=== PATIENT | female | born 1955 ===

== ENCOUNTER 2025-01-24 10:12 | Emergency (ER) | payer MEDICARE, SELFPAY ==
--- NOTE | ~2025-01-24 | CT_ITS ---
EXAMINATION: CT ABDOMEN AND PELVIS WITH CONTRAST CLINICAL INFORMATION: Left lower quadrant abdominal pain, sudden onset. COMPARISON: None available. TECHNIQUE: Multidetector volumetric images were obtained from the superior aspect of the liver through the pubic symphysis following administration 85 mL of Omnipaque 350 intravenous contrast. Sagittal and coronal reformatted images were obtained on the technologist's workstation. Oral contrast: No This CT examination was performed using dose optimization techniques as appropriate, variously including the following: *Automated exposure control *Adjustment of mA and/or kV according to patient size (this includes techniques or standardized protocols for targeted exams where dose is matched to indication/reason for exam; i.e. extremities or head) *Use of iterative reconstruction technique FINDINGS: LUNG BASES: Heart size is normal. Prior median sternotomy. Lung bases are clear. There is a moderate sized paraesophageal hiatus hernia. LIVER, GALLBLADDER, AND BILIARY TREE: The liver is normal in size, shape, and attenuation. No focal hepatic lesion or biliary ductal dilatation is present. The gallbladder is unremarkable with no evidence of radiopaque gallstones, gallbladder wall thickening, or obvious pericholecystic inflammatory changes. PANCREAS: Unremarkable. SPLEEN: Unremarkable. ADRENAL GLANDS: Unremarkable. KIDNEYS AND URETERS: The kidneys are normal in size, shape, and attenuation. No hydronephrosis, hydroureter, or calculi seen. No perinephric stranding. BLADDER: Essentially decompressed. No gross abnormality. GASTROINTESTINAL TRACT: There is extensive diverticulosis of the left hemicolon. There is no evidence of wall thickening or inflammation. No acute diverticulitis is present. The rectum is normal. There are no CT features of appendicitis. Small bowel is normal in caliber and course. Moderate sized paraesophageal hiatus hernia. Stomach and duodenum appear normal. ABDOMINAL WALL: No significant hernia is appreciated. LYMPH NODES: Normal. VASCULAR: No aortic aneurysm. Retroaortic left renal vein. PELVIC VISCERA: The uterus and adnexa are unremarkable. OSSEOUS STRUCTURES: No suspicious lytic or blastic bone lesions. There is a mild to moderate right convex lumbar scoliosis, apex at L2. There are spinal degenerative changes. CT/CT abdomen pelvis w IV con IMPRESSION: 1. No acute findings in the abdomen or pelvis. 2. Diverticulosis of the left colon without evidence of acute diverticulitis. 3. Moderate-sized paraesophageal hiatus hernia. 4. Additional ancillary findings as discussed in the body of the report. Electronically signed by: Theo Posadas MD 01/24/2025 12:28 PM EDT RP
[2025-01-24 10:17] VITALS: BP 127/65; PULSE 82; RESP 16; O2SAT 97; BMI 31.2
[2025-01-24 10:45] LABS: MANUAL DIFF FLAG NO
[2025-01-24 10:50] LABS: Basophils Percent Auto 0.4 % (0-2); Eosinophils Absolute Auto 0.1 X10*3/uL (0.0-0.4); Eosinophils Percent Auto 1.2 % (0-4); Hematocrit 43.5 % (37.0-47.0); Hemoglobin 14.9 g/dl (12.0-16.0); Imm Gran Abs Auto 0.02 X10*3/uL (0.00-0.03); Imm Gran Pct Auto 0.4 % (0.0-0.4); Mean Corpuscular HGB Conc 34.3 g/dl (31.0-35.0); Mean Corpuscular Hemoglobin 32.7 pg (27.0-33.0); Mean Corpuscular Volume 95.4 fL (80.0-98.0); Mean Platelet Volume 9.6 fL (9.4-12.3); Monocytes Absolute Auto 0.4 X10*3/uL (0.1-1.2); Monocytes Percent Auto 7.2 % (2-11); Neutrophils Absolute Auto 3.2 x10*3/uL (2.0-8.3); Neutrophils Percent Auto 55.8 % (45-73); Platelet Count 177 X10*3/uL (160-400); Red Blood Count 4.56 X10*6/uL (4.20-5.50); Red Cell Distribution Width 12.4 % (11.0-16.0); White Blood Count 5.7 X10*3/uL (4.8-10.8)
--- NOTE | 2025-01-24 11:00 | ED_ITS ---
HPI - Abdominal Pain General Chief Complaint: Abdominal Pain Stated Complaint: L Side Lower Pain Time Seen by Provider: 01/24/25 10:48 Source: patient, RN notes reviewed and old records reviewed Mode of arrival: ambulatory History of Present Illness ED Provider: Anahy Agustin PA-C HPI narrative: 69-year-old female with no significant past medical history presenting to the ED complaining of sudden onset left lower quadrant abdominal pain radiating to periumbilical area x this a.m. denies fever, chills, nausea, vomiting, diarrhea, dysuria/hematuria, flank pain, vaginal bleeding or discharge Related Data Allergies Allergy/AdvReac Type Severity Reaction Status Date / Time No Known Allergies Allergy Verified 01/24/25 10:19 Review of Systems Review of Systems Yes all other systems are reviewed and are negative Constitutional: Reports as per [facility] Past Medical History Attestation statement: The following information was validated with the patient. Source: old records reviewed Physical Exam ED Vital Signs: Vital Signs - 24 hr 01/24/25 10:17 01/24/25 12:49 01/24/25 12:50 Temperature 97.7 F 97.7 F Pulse Rate 82 78 78 Respiratory Rate 16 16 16 Blood Pressure 127/65 119/68 119/68 Pulse Oximetry 97 97 97 BMI result Body Mass Index 31.2 Const General: cooperative, healthy appearing and no acute distress Orientation/consciousness: patient oriented x3 Limitations: no limitations HENMT Head: Yes normal to inspection and Yes atraumatic Ears: hearing grossly normal bilaterally General nose exam: Normal external nose present Face and sinus: Yes normal facial exam Eyes General: appearance normal, both eyes and all related structures EOM: EOMs intact bilaterally Neck Neck: Yes normal visual inspection and Yes no meningeal signs Resp Effort & Inspection: normal respiratory effort and no respiratory distress Cardio Rate: regular rate GI Inspection: Yes normal to inspection Palpation (GI): Soft to palpation, Tenderness to palpation present (GI) in the LLQ; with no rebound tenderness, no guarding and not rigid General: Yes no CVA tenderness Back/Spine/Pelvis Back: no CVA tenderness Skin Rashes: no rashes Wounds: no wounds Neuro General: patient oriented x3, tone normal and no meningeal signs Cranial nerves: Yes CN's II-XII intact bilaterally Gait exam (Neuro): Normal gait present Extrem General: Yes normal to inspection Course Course Course Narrative: -1241--no leukocytosis. Labs otherwise reassuring. -UA negative CT abdomen pelvis w IV con IMPRESSION: 1. No acute findings in the abdomen or pelvis. 2. Diverticulosis of the left colon without evidence of acute diverticulitis. 3. Moderate-sized paraesophageal hiatus hernia. 4. Additional ancillary findings as discussed in the body of the report. > on re-evaluation patient reports symptomatic improvement. Denies any abdominal pain at present. On repeat palpation abdomen is soft and nontender. Patient would like to be discharged home. Results discussed with patient including worrisome signs and symptoms and strict return precautions, and when to return to the emergency department. They verbalized understanding and feel safe for discharge at this time. Medical Decision Making Medical Decision Making [facility] Narrative: 69-year-old female with no significant past medical history presenting to the ED complaining of sudden onset left lower quadrant abdominal pain radiating to periumbilical area x this a.m. On exam vital signs stable, NAD, nontoxic appearing, abdomen is soft with LLQ ttp, no rebound or guarding, no CVAT. Concern for diverticulitis vs colitis vs ? Renal stone/UTI vs appendicitis. Lower suspicion for ovarian torsion/TOA at this time. Unlikely cholecystitis/lithiasis or pancreatitis Plan: Labs, UA, CT AP, IVF, pain control, re-evaluate Please refer to course for remaining clinical decision making, interpretation of labs/imaging results, and discussions with consultants and/or family members. Differential Diagnosis Differential Diagnoses: The differential diagnosis associated with the presentation includes As above Admission/Observation Consideration of admission/observation: Escalation of care including admission/observation considered Lab Data [facility] Lab Attestation statement: I reviewed the patient's lab results. 01/24/25 10:42 01/24/25 10:42 Labs: Lab Results 01/24/25 01/24/25 Range/Units 10:42 11:35 WBC 5.7 (4.8-10.8) X10*3/uL RBC 4.56 (4.20-5.50) X10*6/uL Hgb 14.9 (12.0-16.0) g/dl Hct 43.5 (37.0-47.0) % MCV 95.4 (80.0-98.0) fL MCH 32.7 (27.0-33.0) pg MCHC 34.3 (31.0-35.0) g/dl RDW 12.4 (11.0-16.0) % Plt Count 177 (160-400) X10*3/uL MPV 9.6 (9.4-12.3) fL Immature Gran % (Auto) 0.4 (0.0-0.4) % Neut % (Auto) 55.8 (45-73) % Lymph % (Auto) 35.0 (20-40) % [place] % (Auto) 7.2 (2-11) % Eos % (Auto) 1.2 (0-4) % Baso % (Auto) 0.4 (0-2) % Lymph # (Auto) 2.0 (1.2-4.9) X10*3/uL [place] # (Auto) 0.4 (0.1-1.2) X10*3/uL Eos # (Auto) 0.1 (0.0-0.4) X10*3/uL Baso # (Auto) 0.0 (0.0-0.2) X10*3/uL Abs Immat Gran (auto) 0.02 (0.00-0.03) X10*3/uL Absolute Neuts (auto) 3.2 (2.0-8.3) x10*3/uL Absolute Nucleated RBC 0.000 (0.0-0.012) X10*3/uL Nucleated RBC % (auto) 0.0 (0.0-0.2) /100WBC Sodium 140 (135-145) mmol/L Potassium 4.0 (3.3-5.1) mmol/L Chloride 107 (96-108) mmol/L Carbon Dioxide 24 (22-29) mmol/L Anion Gap 13 (12-20) BUN 12 (9-16) mg/dL Creatinine 0.83 (0.5-1.4) mg/dL Estim Creat Clear Calc 65.8 Estimated GFR > 60 Random Glucose 151 H (60-115) mg/dL Calcium 8.9 (8.4-10.2) mg/dL Magnesium 2.0 (1.6-2.6) mg/dL Total Bilirubin 0.4 (0.0-1.0) mg/dL Direct Bilirubin 0.1 (0.0-0.5) mg/dL AST 31 (5-31) U/L ALT 24 (0-31) U/L Alkaline Phosphatase 89 (39-117) U/L Total Protein 7.0 (6.5-8.0) g/dL Albumin 3.9 (3.5-5.0) g/dL Lipase 13 (8-78) U/L Urine Color Yellow Urine Appearance Cloudy Urine pH 5.5 (5.0-9.0) Ur Specific [place] 1.025 (1.005-1.025) Urine Protein Negative (Neg-Trace) mg/dL Urine Glucose (UA) Negative (Negative) mg/dL Urine Ketones Trace (Negative) mg/dL Urine Blood Negative (Negative) Urine Nitrite Negative (Negative) Ur Leukocyte Esterase Negative (Negative) Independent Interpretation I performed an independent interpretation of an: CT Scan Radiology Impression Discussion of test interpretation with radiology: I have reviewed the radiologist's reading. External Record Review External record reviewed: Inpatient record, Office record, Outpatient record, Prior outpatient labs, Prior outpatient radiology, Primary care record and Outside ED record Tests considered The following testing was considered but not selected: As above Prescription Management I considered prescription management with: Pain Medication, Antibiotic and Other Chronic Conditions Patient?s care impacted by: Other Social Determinants Patient?s care significantly limited by Social Determinants of Health including: Other Social Determinant of Health Medications Administered Discontinued Medications Generic Name Dose Route Start Last Admin Trade Name Freq PRN Reason Stop Dose Admin Sodium Chloride 1,000 mls @ 999 mls/hr 01/24/25 11:15 01/24/25 12:44 Ns IV 01/24/25 12:15 Infused .Q1H1M ASHLEY Infusion Ketorolac Tromethamine 15 mg 01/24/25 11:11 01/24/25 11:38 Ketorolac Tromethamine 15 Mg/Ml Vial IVPUSH 01/24/25 11:12 15 mg ONCE ONE Administration Discharge Plan Discharge Clinical Impression: Abdominal pain Patient Disposition: Home, Self-Care Instructions: Abdominal Pain (ED) Additional Instructions: Your blood work, urine, and CAT scan are reassuring Please have close follow up with your primary care doctor Drink plenty of fluids Take Tylenol and ibuprofen as needed for pain If her symptoms persist or worsen, pain becomes unbearable, you are unable to eat or drink have persistent nausea/vomiting return to the ED Referrals: Physician,Unknown J [Primary Care Provider] - 5 days Interventions: ED Discharge Assessment Last Done: 01/24/25 12:50 Discharge Date/Time: 01/24/25 12:57 Print Language: Greenlandic
[2025-01-24 11:06] LABS: Alanine Aminotransferase 24 U/L (0-31); Albumin Level 3.9 g/dL (3.5-5.0); Alkaline Phosphatase 89 U/L (39-117); Anion Gap 13 (12-20); Aspartate Amino Transferase 31 U/L (5-31); Bilirubin Direct 0.1 mg/dL (0.0-0.5); Bilirubin Total 0.4 mg/dL (0.0-1.0); Blood Urea Nitrogen 12 mg/dL (9-16); Calcium 8.9 mg/dL (8.4-10.2); Carbon Dioxide 24 mmol/L (22-29); Chloride 107 mmol/L (96-108); Creatinine Clr Calc Pharmacy 65.8; Estimated Glomerular Filt Rate > 60; Glucose Random 151 mg/dL (60-115); Lipase 13 U/L (8-78); Sodium 140 mmol/L (135-145)
[2025-01-24] MEDS: Ketorolac Tromethamine 15 MG/ML VIAL IVPUSH (11:38)
[2025-01-24] MEDS: 0.9 % Sodium Chloride 1,000 ML 999 ML IV (11:38)
--- OUTSIDE RECORDS SUMMARY | 2025-01-24 11:49 | XMS_ITS | Clinical Summary ---
Author Organization [facility] Address [address] [place] [address] Care Team Providers Care Pastor Name Role Phone Ana Hilton MD Primary Care Provider [phone] Allergies No known active allergies Medications Medication Sig Dispensed Refills Start Date End Date Status dulaglutide (Trulicity) 0.75 MG/0.5ML subcutaneous pen-injector Inject 0.5 mL (0.75 mg total) under the skin once a week. 2 mL 1 11/30/2022 Active acetaminophen (TYLENOL) 325 MG tablet Take 2 tablets (650 mg total) by mouth every 6 (six) hours as needed. 120 tablet 0 12/02/2022 Active aspirin 81 MG chewable tablet Chew 1 tablet (81 mg total) by mouth daily. 30 tablet 0 12/02/2022 Active docusate sodium 100 MG CAPS Take 100 mg by mouth 2 (two) times a day. 10 capsule 0 12/02/2022 Active levothyroxine (SYNTHROID) tablet 75 mcg Take 1 tablet (75 mcg total) by mouth every morning on an empty stomach. 30 tablet 0 12/03/2022 Active oxyCODONE (ROXICODONE) 5 MG immediate release tablet Take 1 tablet (5 mg total) by mouth every 4 (four) hours as needed. 40 tablet 0 12/02/2022 Active pantoprazole (PROTONIX) 40 MG tablet Take 1 tablet (40 mg total) by mouth every morning on an empty stomach. 30 tablet 0 12/03/2022 Active apixaban (ELIQUIS) 5 MG TABS tablet Take by mouth every 12 (twelve) hours. 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 More than three times a week 04/04/2024 How often do you get togethe r with friends or relatives? More than three times a week 04/04/2024 Attends Syn[employer] Services Not on file 04/04 Active Member of Clubs or Organizations Not on f ile 04/04/2024 Attends Club or Organization Meetings Not on mika e 04/04/2024 Are you , , di vorced, , never , or living with a partner? Living with partner 04/04/2024 Overall Financial Resource Strain (CARDIA) Answe r Date Recorded How hard is it for you to pa y for the very basics like food, housing, medical care, and heating? Somewhat hard 04/04/2024 Hunger Vital Sign Answer Date Recorded Within the past 12 months, y ou worried that your food would run out before you got the money to buy more. Never true 04/04/20 24 Within the past 12 months, t he food you bought just didn't last and you didn't have money to get more. Never true 04/04/2024 PRAPARE - Transportation Answer Date Re corded In the past 12 months, has l ack of transportation kept you from medical appointments or from getting medications? No 03/14 In the past 12 months, has l ack of transportation kept you from meetings, work, or from getting things needed for daily living? No 04/04/2024 Housing Stability Vital Sign Answer Shane e Recorded In the last 12 months, was t here a time when you were not able to pay the mortgage or rent on time? No 04/04/2024 Number of Places Lived in the Last Year Not on f ile 04/04/2024 In the last 12 months, was t here a time when you did not have a steady place to sleep or slept in a skilled nursing (including now)? No 04/04/2024 Sex and Gender Information Value Date Recorded Sex Assigned at Female 11/26/2022 11:54 AM EDT Gender Identity Not on file Sexual Orientation Not on file Job Start Date Occupation Industry Not on file Not on file Not on file Last Filed Vital Signs Vital Sign Reading Time Taken Comments Blood Pressure 107/69 03/22/2023 1:36 PM EDT Pulse 82 03/22/2023 1:36 PM EDT Temperature 36.1 ??C (96.9 ??F) 03/22/2023 1:36 PM ED T Respiratory Rate 19 12/02/2022 11:22 AM EDT Oxygen Saturation 98% 03/22/2023 1:36 PM EDT Inhaled Oxygen Concentration - - Weight 83.5 kg (184 lb) 03/22/2023 1:36 PM EDT Height 154.9 cm (5' 1 ) 11/27/2022 2:57 PM EDT Body Mass Index 34.77 11/27/2022 2:57 PM EDT Plan of Treatment Health Maintenance Due Date Last Done Comments Hepatitis C Screening 1955 COVID-19 Vaccine (#1) 1955 Depression Screening 1969 Preventative Health Evaluation 1975 Colon Cancer Screening (Colonoscopy) 2002 DTap / Tdap / Td (1 - Tdap) 07/17/2006 07/16/2006 Breast Cancer Screening (Mammogram) 2007 Shingrix-Zoster Vaccine (1 of 2) 2007 Fall Risk Assessment 2022 Osteoporosis Screening (DEXA Scan) 2022 Pneumococcal Vaccine (3 of 3 - PPSV23 or PCV20) 2022 07/31/2016, 07/31/2016, 05/10/2012 BMI Counseling 11/26/2023 11/25/2022 Influenza Vaccine (#1) 2024 7, 07/31/2016, 05/10/2012, Additional history exists RSV Adult > 60+ Yrs or (1 - 1-dose 75+ series) 2032 Hepatitis B Vaccines Aged Out No long er eligible based on patient's age to complete this topic RSV Ped < 20 months Aged Out No longe r eligible based on patient's age to complete this topic Medical Devices Implanted Type Area Php Software Engineer Device Identifier Shelf Expiration Date Model / Serial / Lot Hemostat Absorb 2x14in Ster Surg Jnj-Ethi 538 - [id number] Implanted:Qt y: 1 on 11/27/2022 by Leoncio Toribio MD at [facility] [place] and Med Hemostatic Agent N/A: Chest [employer] 01/10/20271950 / / [id number] Hemasorb 4gm 2x2gm Abyx-Manu [id number] - [id number] Implanted:Qt y: 2 on 11/27/2022 by Leoncio Toribio MD at [facility] [place] and Med N/A: Chest [employer] 10/12/2025 OS-401 / / Plate X Stry-Cran [id number] - [id number] Implanted:Qt y: 2 on 11/27/2022 by Leoncio Toribio MD at [facility] [place] and Med N/A: Chest [employer] [id number] / / Plate Manubrium Stry-Cran [id number] - [id number] Implanted:Qt y: 1 on 11/27/2022 by Leoncio Toribio MD at [facility] [place] and Med N/A: Chest [employer] [id number] / / Screw Sd Locking 2.3x12mm Stry-Cran [id number] - [id number] Implanted:Qt y: 5 on 11/27/2022 by Leoncio Toribio MD at [facility] [place] and Med N/A: Chest [employer] [id number] / / Screw Sd Locking 2.3x14mm Stry-Cran [id number] - [id number] Implanted:Qt y: 9 on 11/27/2022 by Leoncio Toribio MD at [facility] [place] and Med N/A: Chest [employer] [id number] / / Screw Sd Locking 2.3x16mm Stry-Cran [id number] 97 - [id number] Implanted:Qt y: 8 on 11/27/2022 by Leoncio Toribio MD at [facility] [place] and Med N/A: Chest [employer] [id number] / / Advance Directives For more information, please contact: [phone] Latest Code Status on File Code Status Date Activated Date Inactivated Comments Full Code 11/26/2022 3:10 PM 12/03/2022 2:17 AM This code status was ascertained in the following way: discussion with patient . Code Status History Code Status Date Activated Date Inactivated Comments Full Code 11/26/2022 2:02 PM 11/26/2022 3:10 PM This code status was ascertained in the following way: discussion with patient. Care Teams Pastor Relationship Specialty Start Date End Date Ana Hilton MD [address] [place] [id number] PCP - General Internal Medicine 11/25/22
--- OUTSIDE RECORDS SUMMARY | 2025-01-24 11:49 | XMS_ITS ---
Author Organization [facility] Address [address] [place] [address] Care Team Providers Care Drilling Fluids Specialist Name Role Phone KEVEN BRIGGS Primary Care Provider [phone] Sherly Vidales Unavailable [phone] Encounters Encounter Location Date Provider Diagnosis [address] [facility] [address] [place] [address] 01/04/2025 Sherly Vidales Plan Of Treatment Next Appt Details Provider Name:ARABELLA FITZPATRICK, 02/13/2025 11:15:00 AM, [address], [address], [place], [address], Progress Notes * MARSMichelle DENNEYDOB:1955 (69 yo F)Acc No.[id number]:01/04/2025 CPE Patient:?Michelle MARS Provider:?Sherly Vidales PA-C :1955???Age:69 Y???Sex:Female D ate:01/04/2025 Address:[address] [facility], [address], [place], [id number] Pcp:KEVEN BRIGGS Subjective: * Chief Complaints: * ??? * Medical History:? Objective: * Vitals:? Assessment: Plan: * Treatment: * Billing Information: * Visit Code:? * Procedure Codes:? Care Plan Details* * Electronic signature of Sherly Vidales PA-C on 01/24/2025 at 11:48 AM EDT Sign off status: Pending * Provider:?Sherly Vidales PA-C Date:?2024 Generated for Chapo suarez/Uyen/Ivanitting on:?01/24/2025 11:48 AM EDT
--- OUTSIDE RECORDS SUMMARY | 2025-01-24 11:49 | XMS_ITS | Patient Health Record ---
Author Organization [facility] Address [address] [place] [address] Care Team Providers Care Phone Operator Name Role Phone KEVEN HILTON Primary Care Provider AMARI ARABELLA Unavailable [phone] PhillipSimeon birch Unavailable [phone] JAKIVANCE Unavailable [phone] Allergies No Known Allergies Results Component Value Reference Range Notes NM GASTRIC EMPTYING STUDY Reviewed date:08/14/2024 09:57:23 AM Interpretation: Performing Lab: Notes/Report: Note See Note [facility], a member of [facility] Patient Name: GEORGE MARS Date of : 1955 Reason for Exam: k31.89 Exam Date: 08/04/2024 [id number] EST Report Status: Final Ordering Provider: ZOHREH SILVA PCP: KEVEN HILTON HISTORY: Nausea and abdominal pain. FINDINGS: Routine radionuclide gastric emptying study was performed following administration of 1.0 mCi of Tc99m sulfur colloid prepared in egg for solid food evaluation. Anterior and posterior imaging obtained. 1 hour retention 60% . Normal <90% 2 hour retention 35% . Normal <60% 3 hour retention 25% . Normal <30% 4 hour retention 15% . Normal <10% IMPRESSION: Normal gastric emptying. -------- FINAL REPOR T -------- Dictated By: German Cohen Dictated Date: 08/08/2024 10:22 ET Assigned Physician: German Cohen Reviewed and Electronically Signed By: German Cohen Signed Date: 10:22 ET Workstation ID: [id number] Transcribed By: Self Edit Transcribed Date: 08/08/2024 10:22 ET TSH Reviewed date:07/05/2024 04:25:56 PM Interpretation: Performing Lab: Notes/Report: Original Ordering Provider: SIMEON RECINOS PA-C [facility], a member of [address] [address] [employer] - Josselin Tom MD TSH 9.50 0.40-4.00 uIU/ml [employer] Reviewed date:07/18/2024 02:08:28 PM Interpretation: Performing Lab: Notes/Report: Original Ordering Provider: KEVEN HILTON MD [facility] HIGH SENSITIVITY TROPONIN I Reviewed date:04/05/2024 09:02:55 AM Interpretation: Performing Lab: Notes/Report: Note Original Ordering Provider: JOSE Moore, [place] [address] [employer] - Josselin Tom MD HIGH SENSITIVITY TROPONIN I 4 <54 pg/mL High levels of biotin in samples may falsely decrease hsTroponin values. Use caution when interpreting hsTroponin results in patients taking biotin who exhibit renal impairment (eGFR <60) or in patients taking more than 20 mg/day of biotin. Note Original Ordering Provider: JOSE Moore, [place] [address] [employer] - Josselin Tom MD CT Abdomen Pelvis W Cont Reviewed date:02/25/2024 11:24:36 AM Interpretation: Performing Lab: Notes/Report: Original Ordering Provider: KEVEN HILTON MD [facility] TOTAL IRON BINDING CAPACITY Reviewed date:04/12/2024 11:31:42 AM Interpretation: Performing Lab: Notes/Report: TOTAL IRON BINDING CAPACITY 280 250-450 ug/dL IRON (FE) 87 40-150 ug/dL % FE SATURATION 31 15-50 % VIT D 1, 25-DIHYDROXY Reviewed date:04/18/2024 04:41:04 PM Interpretation: Performing Lab: Notes/Report: Note Original Ordering Provider: SIMEON Moore, a member of [address] [address] [employer] - Josselin Tom MD VIT D,1,25-DIHYDROXY 69 20 - 79 pg/mL Vitamin D 1, 25 dihydroxy levels should be primarily used to assess Vitamin D status in patients with renal disease and hypercalcemia. Vitamin D 1,25-dihydroxy levels are generally less than 5 pg/mL in end stage renal disease patients. The preferred initial test for assessing Vitamin D status in the general population is Vitamin D 25-hydroxy (VITD). Test performed at [facility], [facility] [place] [id number] Catherine Gustafson MD, PhD - [employer] Note Original Ordering Provider: SIMEON RECINOS PA-C [employer], a member of [address] [address] [employer] - Josselin Tom MD LIPASE Reviewed date:04/05/2024 09:02:55 AM Interpretation: Performing Lab: Notes/Report: [employer], a member of [address] [address] [employer] - Josselin Tom MD LIPASE 17 13-75 U/L TSH Reviewed date:05/03/2024 04:16:20 PM Interpretation: Performing Lab: Notes/Report: [employer] - Josselin Tom MD [address] [place] [id number] [employer], a member of [facility] Original Ordering Provider: SIMEON RECINOS PA-C TSH 4.08 0.40-4.00 uIU/ml TSH Reviewed date:04/17/2024 09:48:18 AM Interpretation: Performing Lab: Notes/Report: [employer] - Josselin Tom MD [address] [place] [id number] [employer], a member of [facility] TSH 4.47 0.40-4.00 uIU/ml VITAMIN B12 Reviewed date:04/12/2024 11:31:20 AM Interpretation: Performing Lab: Notes/Report: VITAMIN B12 274 250-900 pg/mL LIPID PROFILE Reviewed date:04/12/2024 11:32:27 AM Interpretation: Performing Lab: Notes/Report: Original Ordering Provider: SIMEON RECINOS PA-C CHOLESTEROL 212 0-200 mg/dL TRIGLYCERIDES 133 0-150 mg/dL HDL CHOLESTEROL 52 >40 mg/dL LDL CALCULATED 134 0-100 mg/dL TC-HDLC RATIO 4.1 0-4.4 mg/dL CBC WITH AUTO DIFF Reviewed date:05/05/2024 08:25:40 AM Interpretation: Performing Lab: Notes/Report: Original Ordering Provider: SIMEON RECINOS PA-C [employer], a member of [address] [address] [employer] - Josselin Tom MD WBC 5.2 4.8-10.8 x10-3/uL RBC 4.3 3.8-4.8 x10-6/uL HEMOGLOBIN 13.8 11.5-16.0 g/dL HEMATOCRIT 43.5 35-47 % MCV 100.7 79-98 fL MCH 31.9 27-32 pg MCHC 31.7 32-37 g/dL RDW 12.3 11-15 % PLT COUNT 182 130-400 x10-3/uL MEAN PLATELET VOLUME 10.8 7-11 fL NRBC % AUTO 0.0 <1 % NEUT % 53.0 LYMPH % 34.2 MONO % 9.5 EOS % 2.5 BASO % 0.4 IMMATURE GRANULOCYTES % 0.4 NRBC # AUTO 0.00 <0.1 x10-3/uL ABSOLUTE NEUT 2.74 1.5-7.0 x10-3/uL LYMPH # 1.77 1-5.0 x10-3/uL MONO # 0.49 0.2-1.0 x10-3/uL EOS # 0.13 0-0.5 x10-3/uL BASO # 0.02 0-0.2 x10-3/uL IMMATURE GRANULOCYTES # 0.02 0-0.03 x10-3/uL CBC WITH AUTO DIFF Reviewed date:04/05/2024 09:03:12 AM Interpretation: Performing Lab: Notes/Report: Original Ordering Provider: JOSE MEEHAN [employer], a member of [address] [address] [employer] - Josselin Tom MD WBC 4.9 4.8-10.8 x10-3/uL RBC 4.3 3.8-4.8 x10-6/uL HEMOGLOBIN 14.1 11.5-16.0 g/dL HEMATOCRIT 43.4 35-47 % MCV 100.9 79-98 fL MCH 32.8 27-32 pg MCHC 32.5 32-37 g/dL RDW 12.6 11-15 % PLT COUNT 185 130-400 x10-3/uL MEAN PLATELET VOLUME 10.1 7-11 fL NRBC % AUTO 0.0 <1 % NEUT % 60.0 LYMPH % 29.2 MONO % 8.2 EOS % 1.8 BASO % 0.4 IMMATURE GRANULOCYTES % 0.4 NRBC # AUTO 0.00 <0.1 x10-3/uL ABSOLUTE NEUT 2.94 1.5-7.0 x10-3/uL LYMPH # 1.43 1-5.0 x10-3/uL MONO # 0.40 0.2-1.0 x10-3/uL EOS # 0.09 0-0.5 x10-3/uL BASO # 0.02 0-0.2 x10-3/uL IMMATURE GRANULOCYTES # 0.02 0-0.03 x10-3/uL COMPREHENSIVE METABOLIC PANE L Reviewed date:04/05/2024 09:03:12 AM Interpretation: Performing Lab: Notes/Report: Note Original Orderi ng Provider: DOC ER GLUCOSE 152 70-100 mg/dL Reference range applicable to fasting specimens only BUN 11 5-25 mg/dL CREAT 0.92 0.5-1.1 mg/dL GLOMERULAR FILTRATION RATE 69 >60 This eGFR result was calculated using the CKD-EPI 2020 Creatinine Equation SODIUM 140 135-145 mEq/L POTASSIUM 4.5 3.5-5.5 mmol/L CHLORIDE 111 96-110 mmol/L CO2 27 21-32 mmol/L ANION GAP 2 3-11 CALCIUM 8.6 8.5-10.5 mg/dL TOTAL PROTEIN 6.8 6.0-8.0 G/dL ALBUMIN 3.6 3.2-5.0 G/dL BILI,TOTAL 0.4 0.0-1.4 mg/dL SGOT 41 10-42 U/L SGPT 55 10-60 U/L ALK PHOS 110 42-121 U/L GLYCOHEMOGLOBIN PROFILE Reviewed date:04/12/2024 12:41:43 PM Interpretation: Performing Lab: Notes/Report: [employer] - Josselin Tom MD [address] [place] [id number] [employer], a member of [facility] Original Ordering Provider: SIMEON RECINOS PA-C GLYCATED HEMOGLOBIN A1C 7.8 <6.5 % ESTIMATED AVERAGE GLUCOSE 177 Medications Medication SIG (Take, Route, Frequency, Duration) Notes Start Date End Date Status Pantoprazole Sodium 40 MG TAKE 1 TABLET BY MOUTH EVERY DAY FOR 90 DAYS for 90 Active Eliquis 5 MG 1 tablet Orally Twic e a day for 30 days Active Meclizine HCl 25 MG 1 tablet as needed Orally every 8 hoiurs for 10 days 07/16/2022 Active predniSONE 20 MG 2 tablets with food or milk Orally Once a day for 5 days 08/29/2024 Active Sucralfate 1 GM 1 tablet on an empty stomach Orally three times a day Active Albuterol Sulfate (2.5 MG/3ML) 0.083% 3 ml as needed shortness of breath/wheezing Inhalation every 6 hrs for 30 days 08/28/2024 Active Fluocinonide 0.05 % 1 application Externally Twice a day for 10 days 11/17/2023 Active Ferrous Gluconate 324 (38 Fe) MG TAKE 1 TABLET BY MOUTH TWICE A DAY Orally for 90 days Active Ventolin HFA 108 (90 Base) MCG/ACT 1 puff as needed Inhalation every 4 hrs 08/09/2023 Active Famotidine 20 MG TOME 1 TABLETA POR V IA ORAL DOS VECES AL GHASSAN FOR 30 DAYS for 90 Active LORazepam 0.5 MG 1 tablet twice a day as needed for breakthrough anxiety Orally Once a day for 30 days 07/22/2023 Active D3 50 MCG (2000 UT) TAKE 2 TABLETS BY [facility] EVERY DAY Orally for 90 days Active Atorvastatin Calcium 40 MG 1 tablet Orally Once a day for 90 days Active Vitamin B12 1000 MCG 1 tablet Orally Onc e a day for 90 days undefined 06/14/2018 Active Erythromycin 5 MG/GM 1 application into the lower eyelid of affected eye Ophthalmic Four times a day for 7 days 01/03/2025 Active Metoprolol Tartrate 25 MG 1 tablet with food Orally Twice a day for 90 days Active Diclofenac Sodium 1 % USE EXTERNALLY SEG UN LO INDICADO DOS VECES AL GHASSAN 30 for 30 Active Mupirocin 2 % 1 application Externally Twice a day for 5 days 07/05/2024 Active Levothyroxine Sodium 75 MCG 1 tablet on an empty stomach in the morning Orally Once a day for 90 Active Senna 8.6 MG 2 capsules at bedtim e as needed Orally Once a day for 30 day(s) 11/10/2018 Active metFORMIN HCl ER 750 MG TAKE 1 TABLET BY MOUTH EVERY DAY WITH EVENING MEAL FOR 90 DAYS for 90 days Active Levothyroxine Sodium 88 MCG TOME 1 TABLETA POR VIA ORAL TODOS LOS HERNANDEZ EN LA MANANA ON AN EMPTY STOMACH FOR 30 DAYS for 90 Active Escitalopram Oxalate 5 MG TAKE 1 TABLET BY MOUTH EVERY DAY FOR 30 DAYS for 90 Active Immunizations Vaccine Route Administration Date Status Comme nts Flu vaccine no Preserv 3 and > IM Intramuscular 06/14/2018 Administered Flu vaccine no Preserv 3 and > Unknown 11/02/2022 Administered influenza IM Intramuscular 11/11/2020 Administered Influenza, high dose seasonal IM Intramuscular 06/02/2019 Administered Influenza, seasonal, injectable, 6-35 months Unknown 06/22/2014 Administered Influenza, seasonal, injectable, 6-35 months Unknown 07/31/2016 Administered Pfizer Covid-19 Vaccine Unknown 01/02/2021 Administered Pfizer Covid-19 Vaccine Unknown 01/23/2021 Administered Pneumococcal polysaccharide PPV23 Unknown 07/31/2016 Administered Social History Tobacco Use: Social History Observation Description Date Details (start date - stop date) Current Smoker NA - NA Tobacco Use/Smoking Question Answer Notes Are you a current smoker How many cigarettes a day do you smoke? 6-10 Section Notes: patient lives independently and has a supportive family she is not currently smoking or drinking alcohol patient lives independently and has a supportive family she is not currently smoking or drinking alcohol patient lives independently and has a supportive family she is not currently smoking or drinking alcohol patient lives independently and has a supportive family she is not currently smoking or drinking alcohol patient lives independently and has a supportive family she is not currently smoking or drinking alcohol patient lives independently and has a supportive family she is not currently smoking or drinking alcohol patient lives independently and has a supportive family she is not currently smoking or drinking alcohol patient lives independently and has a supportive family she is not currently smoking or drinking alcohol patient lives independently and has a supportive family she is not currently smoking or drinking alcohol patient lives independently and has a supportive family she is not currently smoking or drinking alcohol patient lives independently and has a supportive family she is not currently smoking or drinking alcohol patient lives independently and has a supportive family she is not currently smoking or drinking alcohol patient lives independently and has a supportive family she is not currently smoking or drinking alcohol patient lives independently and has a supportive family she is not currently smoking or drinking alcohol patient lives independently and has a supportive family she is not currently smoking or drinking alcohol patient lives independently and has a supportive family she is not currently smoking or drinking alcohol patient lives independently and has a supportive family she is not currently smoking or drinking alcohol patient lives independently and has a supportive family she is not currently smoking or drinking alcohol patient lives independently and has a supportive family she is not currently smoking or drinking alcohol patient lives independently and has a supportive family she is not currently smoking or drinking alcohol patient lives independently and has a supportive family she is not currently smoking or drinking alcohol patient lives independently and has a supportive family she is not currently smoking or drinking alcohol patient lives independently and has a supportive family she is not currently smoking or drinking alcohol patient lives independently and has a supportive family she is not currently smoking or drinking alcohol patient lives independently and has a supportive family she is not currently smoking or drinking alcohol patient lives independently and has a supportive family she is not currently smoking or drinking alcohol patient lives independently and has a supportive family she is not currently smoking or drinking alcohol patient lives independently and has a supportive family she is not currently smoking or drinking alcohol patient lives independently and has a supportive family she is not currently smoking or drinking alcohol patient lives independently and has a supportive family she is not currently smoking or drinking alcohol patient lives independently and has a supportive family she is not currently smoking or drinking alcohol patient lives independently and has a supportive family she is not currently smoking or drinking alcohol patient lives independently and has a supportive family she is not currently smoking or drinking alcohol patient lives independently and has a supportive family she is not currently smoking or drinking alcohol patient lives independently and has a supportive family she is not currently smoking or drinking alcohol patient lives independently and has a supportive family she is not currently smoking or drinking alcohol patient lives independently and has a supportive family she is not currently smoking or drinking alcohol patient lives independently and has a supportive family she is not currently smoking or drinking alcohol Problems Problem Type SNOMED Code ICD Code Onset Dates Problem Status W/U Status Risk Notes Problem Iron deficiency anemia (16365266) Iron deficiency anemia, unspecified (D50.9) Active confirmed Problem Hypothyroidism (82539600) Hypothyroidism, unspecified (E03.9) Active confirmed Problem Complication due to secondary diabetes mellitus (564327859146497) Diabetes mellitus due to underlying condition with unspecified complications (E08.8) Active confirmed Problem 15323714 Vitamin D deficiency, unspecified (E55.9) Active confirmed Problem Mixed hyperlipidemia (003725005) Mixed hyperlipidemia (E78.2) Active confirmed Problem Hyperlipidemia (57806267) Hyperlipidemia, unspecified (E78.5) Active confirmed Problem Mild recurrent major depression (56081300) Major depressive disorder, recurrent, mild (F33.0) Active confirmed Problem Restless legs syndrome (59504541) Restless legs syndrome (G25.81) Active confirmed Problem Chronic migraine without aura, non-refractory (disorder) (591800190212635) Migraine without aura, not intractable, without status migrainosus (G43.009) Active confirmed Problem Asthma (922187556) Other asthma (J45.998) Active confirmed Problem Gastro-esophageal reflux disease with esophagitis (867841402) Gastro-esophageal reflux disease with esophagitis (K21.0) Active confirmed Problem Constipation (21469224) Constipation, unspecified (K59.00) Active confirmed Problem 318315864 Encounter for general adult medical examination without abnormal findings (Z00.00) Active confirmed Problem Lipid screening (481262969) Encounter for screening for lipoid disorders (Z13.220) Active confirmed Problem 112477823 Encounter for screening for other suspected endocrine disorder (Z13.29) Active confirmed Problem Prediabetes (596773527) Prediabetes (R73.03) Active confirmed Problem Adult health examination (364233836) Adult general medical exam (Z00.00) Active confirmed Problem 25896768 Atrial fibrillation, unspecified type (I48.91) Active confirmed Problem Dizziness (201865133) Dizziness (R42) Active confirmed Problem 51311905 Abdominal pain, unspecified abdominal location (R10.9) Active confirmed Problem Obese class I (finding) (676445667543105) Obesity (BMI 30.0-34.9) (E66.9) Active confirmed Problem Vitamin D deficiency (34301737) Vitamin D deficiency (E55.9) Active confirmed Problem Type II diabetes mellitus without complication (049452155) Encounter for diabetic foot exam (E11.9) Active confirmed Problem Diabetes mellitus screening (405453891) Diabetes mellitus screening (Z13.1) Active confirmed Problem 248575283 Type 2 diabetes mellitus without complication, without long-term current use of insulin (E11.9) Active confirmed Problem Type II diabetes mellitus without complication (067281728) Type 2 diabetes mellitus without complication, unspecified whether longterm insulin use (E11.9) Active confirmed Problem 549347503 Gastroesophageal reflux disease, unspecified whether esophagitis present (K21.9) Active confirmed Problem Ataxia () Ataxia (R27.0) Active confirm ed Problem Lipoma (07896076) Lipoma, unspecified site (D17.9) Active confirmed Problem Lipoma of head (264271435481822) Lipoma of head (D17.0) Active confirmed Problem 51879100 Hiatal hernia (K44.9) Active confirmed Problem 27799417396582541 Left breast ma ss (N63.20) Active confirmed Problem Heart failure (88355359) Chronic heart failure, unspecified heart failure type (I50.9) Active confirmed Problem Thyroid disorder screening (405000846) Thyroid disorder screen (Z13.29) Active confirmed Problem 029396845344374 Atrial fibrillation with RVR (I48.91) Active confirmed Problem 875114360 Mild intermitten t asthma with acute exacerbation (J45.21) Active confirmed Problem Endocrine/metabolic screening (188683408) Encounter for screening for endocrine disorder (Z13.29) Active confirmed Problem 731454979 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) Active confirmed Problem 31710632018989206 Pain, joint, shoulder, left (M25.512) Active confirmed Vital Signs Heart Rate 63 /min 01/03/2025 Blood pressure diastolic 84 mm Hg 01/03/2025 Oximetry 98 % 01/03/2025 Height 61 in 01/03/2025 Blood pressure systolic 136 mm Hg 01/03/2025 Weight 180 lbs 01/03/2025 BMI 34.01 kg/m2 01/03/2025 Encounters Encounter Location Date Provider Diagnosis [facility] [address] [place] [address] 02/02/2024 KEVEN HILTON [facility] [address] [place] [address] 02/03/2024 KEVEN HILTON [address] [address] 02/04/2024 KEVEN HILTON [address] [address] 02/08/2024 KEVEN HILTON Iron deficiency anem ia, unspecified D50.[address] [facility] [address] [place] [address] 02/21/[address] [facility] [address] [place] [address] 02/22/[address] [facility] [address] [place] [address] 02/24/[address] [facility] [address] [place], [place] 03/08/[address] [facility] [address] [place] [address] 03/10/2024 TALAL HILTON [address] [place] [address] 03/20/[address] [facility] [address] [place] [address] 03/23/[address] [facility] [address] [place], [place] 04/04/2024 TALLUIS HILTON [facility] [address] [place] [address] 04/04/2024 Simeon Svrcek [facility] [address] [place] [address] 04/14/2024 Simeon Svrcek Vitamin D deficiency , unspecified E55.9 ; Iron deficiency anemia, unspecified D50.9 and Hypothyroidism, unspecified E03.[address] [facility] [address] [place], [place] 05/12/[address] [facility] [address] [place], [place] 05/30/2024 TALLUIS HILTON Anemia due to vitami n B12 deficiency, unspecified B12 deficiency type D51.9 and Vitamin D deficiency, unspecified E55.9 [address] [place], [place] 06/02/2024 Simeon Svrcek Anemia due to vitami n B12 deficiency, unspecified B12 deficiency type D51.9 and Vitamin D deficiency, unspecified E55.[address] [facility] [address] [place] [address] 06/02/2024 TALLUIS HILTON Vitamin D deficiency , unspecified E55.[address] [facility] [address] [place] [address] 06/09/[address] [facility] [address] [place] [address] 06/21/2024 Simeon Svrcek [address] [place] [address] 07/05/2024 Simeon Svrcek Hypothyroidism, unspecified E03.[address] [facility] [address] [place] [address] 08/25/2024 TALLUIS HILTON [address] [place] [address] 08/28/[address] [address] [place] [address] 08/28/2024 ARABELLA [place] [facility] [address] [place] [address] 08/28/[address] [facility] [address] [place] [address] 08/29/2024 ARABELLA BORT [facility] [address] [place] [address] 08/29/2024 [facility] [address] [place] [address] 08/31/[address] [facility] [address] [place] [address] 09/22/2024 Simeon Svrcek Vitamin D deficiency , unspecified E55.[address] [facility] [address] [place] [address] 09/26/2024 Simeon Svrcek Anemia due to vitami n B12 deficiency, unspecified B12 deficiency type D51.[address] [facility] [address] [place] [address] 09/29/2024 Simeon Svrcek Vitamin D deficiency , unspecified E55.[address] [facility] [address] [place] [address] 10/04/[address] [facility] [address] [place] [address] 10/25/[address] [facility] [address] [place] [address] 10/27/2024 SATISHLUIS CHESTER [address] [address] 11/01/2024 Simeon Jonak [address] [facility] [address] [place] [address] 11/01/2024 Simeon Svrcek [facility] [address] [address] 11/02/2024 Simeon Svrcek [facility] [address] [place] [address] 11/02/2024 SATISHLUIS SANTIAGOAN [facility] [address] [facility] [address] [address] 11/30/2024 KEVEN HILTON Adult general medica l exam Z00.00 ; Encounter for screening for lipoid disorders Z13.220 ; Diabetes mellitus screening Z13.1 ; Encounter for screening for endocrine disorder Z13.29 and Thyroid disorder screen Z13.29 [address] [address] 01/03/2025 SATISHLUIS HILTON [facility] [address] [facility] [address] [address] 03/14/2024 SATISHLUIS HILTON Hyperlipidemia, unspecified E78.5 ; Acute pain of right shoulder M25.511 and Hiatal hernia K44.[address] [address] 01/03/2025 VANCE JAKI Bacterial conjunctivitis H10.9 and Hordeolum externum of left upper eyelid H00.014 [facility] [address] [facility] [address] [address] 02/08/2024 SATISHLUIS SANTIAGOAN Hiatal hernia K44.9 ; Iron deficiency anemia, unspecified D50.9 ; Abdominal pain, unspecified abdominal location R10.9 ; Epigastric pain R10.13 and RUQ abdominal pain R10.[address] [address] 07/05/2024 Simeon Phillipeyal Hypothyroidism, unspecified E03.9 ; Folliculitis L73.9 ; Lump on face R22.0 ; Atrial fibrillation with RVR I48.91 and Abdominal discomfort R10.[address] [address] 04/12/2024 Simeon Svrcek Right upper quadrant pain R10.11 ; Epigastric pain R10.13 ; Dizziness R42 ; Iron deficiency anemia, unspecified D50.9 ; Hyperlipidemia, unspecified E78.5 ; Hypothyroidism, unspecified E03.9 ; Gastroesophageal reflux disease, unspecified whether esophagitis present K21.9 ; Vitamin D deficiency, unspecified E55.9 and Anemia due to vitamin B12 deficiency, unspecified B12 deficiency type D51.9 [facility] [address] [address] 08/28/2024 ARABELLA FITZPATRICK Mild intermittent asthma with acute exacerbation J45.21 [place] [id number] [address] 05/03/2024 Simeon Svrcek Black stool K92.1 ; Annual physical exam Z00.00 ; BRBPR (bright red blood per rectum) K62.5 and Encounter for screening mammogram for malignant neoplasm of breast Z12.31 Assessments Encounter Date Diagnosis (ICD Code) Assessment Notes Treatment Notes Treatment Clinical Notes Section Notes 02/08/2024 Iron deficiency anemia, unspecified (ICD-10 - D50.9) Discussed with patient regarding her abdominal pain as she is visibily distressed regarding this. We followed up regarding her ER visit and confirmed per patient no imaging such as CT AP or ultrasound was completed. We also discussed patient's prior colonoscopy results which were normal and endoscopy results which showed hiatal hernia. A possible consideration could the hiatal hernia progressing, ulcers, or something else. At this time her abdomen pain is of unclear etiology and we informed patient we would like to proceed with a CT scan to further evaluate the cause as we do not know for sure what could be causing her pain.. We will also be getting a consult from Dr. Mackey (General surgery) to discuss his opinion on if patient's hiatal hernia should be managed surgically or if medical management is the preferred course of treatment at this time. In the meantime we will be prescribing patient Famotidine which should help with her GERD-related sx as well. Patient states she has been struggling with food so advised she can try yogurt, broth, sweet potatoes, spinach, arugula, apples, berries, boiled eggs as these should hopefully not exacerbate her sx. F/u in 6 weeks. Patient aware and agreeable to assessment and plan. Patient given opportunity to ask any questions. All questions answered to patient's satisfaction. 02/08/2024 Hiatal hernia (ICD-10 - K44.9) Discussed with patient regarding her abdominal pain as she is visibily distressed regarding this. We followed up regarding her ER visit and confirmed per patient no imaging such as CT AP or ultrasound was completed. We also discussed patient's prior colonoscopy results which were normal and endoscopy results which showed hiatal hernia. A possible consideration could the hiatal hernia progressing, ulcers, or something else. At this time her abdomen pain is of unclear etiology and we informed patient we would like to proceed with a CT scan to further evaluate the cause as we do not know for sure what could be causing her pain.. We will also be getting a consult from Dr. Mackey (General surgery) to discuss his opinion on if patient's hiatal hernia should be managed surgically or if medical management is the preferred course of treatment at this time. In the meantime we will be prescribing patient Famotidine which should help with her GERD-related sx as well. Patient states she has been struggling with food so advised she can try yogurt, broth, sweet potatoes, spinach, arugula, apples, berries, boiled eggs as these should hopefully not exacerbate her sx. F/u in 6 weeks. Patient aware and agreeable to assessment and plan. Patient given opportunity to ask any questions. All questions answered to patient's satisfaction. 02/08/2024 Iron deficiency anemia, unspecified (ICD-10 - D50.9) 03/14/2024 Hyperlipidemia, unspecified (ICD-10 - E78.5) Patient with reinier st pain with severe reflux with alarm features. Patient has been referred for endoscopy. She is already maximized for treatment. I advised her to cut back on refined carbohydrates. I ordered blood work. I also referred to orthopedic surgery for ongoing right-sided shoulder pain with rotator cuff tendinitis and restricted range of motion of the shoulder on the right side. Diclofenac gel was prescribed as well. Will follow-up 04/12/2024 Right upper quadrant pain (ICD-10 - R10.11) #Right upper quadrant pain and epigastric pain. Moderate tenderness on exam. Will get ultrasound to further evaluate. CBC and CMP done this past week in the ED were normal. She does have a history of reflux and is currently on pantoprazole and sucralfate. Has also been referred to GI and is awaiting appointment. #Dizziness-ED visit secondary to fall. Discussed importance of eating consistently and regular hydration. Discussed potential impacts from her medications and sudden drop in blood pressure if she is dehydrated or changes positions quickly. No recurrent symptoms since ED visit. #Iron deficiency anemia. CBC normal in the ED last week. Will get updated iron studies and follow-up pending results #Vitamin D deficiency. Has been on supplement. Will recheck levels and refill medication. #Hyperlipidemia. Will get updated labs prior to wellness visit next month. #GERD. Worsening symptoms despite pantoprazole and sucralfate. Discussed importance of cutting back on coffee intake. Discussed limiting citrus and acidic foods in diet avoid laying down within 2 hours of eating. Will likely need endoscopy. She has been referred to GI awaiting appointment. Ultrasound as above. #Vitamin B12 deficiency. Recheck labs. MCV 100 on recent labs. Currently on supplement. No history of alcohol use. Will refill prescription follow-up pending results Case discussed with collaborating physician Nahun Hilton who reviewed the assessment and plan. Chart, medications, labs, vital signs reviewed. Dictation was accomplished with the use of [employer] voice recognition software, prone to medical misidentifications and grammatical errors. This is unintentional and the practitioner does try to identify and correct these, but some could still be present. Please do not hesitate to contact practitioner for clarification. All questions answered to patients satisfaction. Patient verbalized understanding of diagnosis and treatments explained. To call sooner prior to next visit it any questions/concerns arise. 04/12/2024 Epigastric pain (ICD-10 - R10.13) #Right upper quadrant pain and epigastric pain. Moderate tenderness on exam. Will get ultrasound to further evaluate. CBC and CMP done this past week in the ED were normal. She does have a history of reflux and is currently on pantoprazole and sucralfate. Has also been referred to GI and is awaiting appointment. #Dizziness-ED visit secondary to fall. Discussed importance of eating consistently and regular hydration. Discussed potential impacts from her medications and sudden drop in blood pressure if she is dehydrated or changes positions quickly. No recurrent symptoms since ED visit. #Iron deficiency anemia. CBC normal in the ED last week. Will get updated iron studies and follow-up pending results #Vitamin D deficiency. Has been on supplement. Will recheck levels and refill medication. #Hyperlipidemia. Will get updated labs prior to wellness visit next month. #GERD. Worsening symptoms despite pantoprazole and sucralfate. Discussed importance of cutting back on coffee intake. Discussed limiting citrus and acidic foods in diet avoid laying down within 2 hours of eating. Will likely need endoscopy. She has been referred to GI awaiting appointment. Ultrasound as above. #Vitamin B12 deficiency. Recheck labs. MCV 100 on recent labs. Currently on supplement. No history of alcohol use. Will refill prescription follow-up pending results Case discussed with collaborating physician Nahun Hilton who reviewed the assessment and plan. Chart, medications, labs, vital signs reviewed. Dictation was accomplished with the use of [employer] voice recognition software, prone to medical misidentifications and grammatical errors. This is unintentional and the practitioner does try to identify and correct these, but some could still be present. Please do not hesitate to contact practitioner for clarification. All questions answered to patients satisfaction. Patient verbalized understanding of diagnosis and treatments explained. To call sooner prior to next visit it any questions/concerns arise. 04/14/2024 Vitamin D deficiency, unspecified (ICD-10 - E55.9) 05/03/2024 Annual physical exam (ICD-10 - Z00.00) #Annual physical. Advised to schedule dental exam. Due for tetanus vaccine advised to get at pharmacy. Discussed healthy diet exercise as tolerated. Healthcare proxy given to patient will bring back to follow-up visit. #Black stool and bright red blood per rectum. Episode in the last couple of days. She is currently anticoagulated on Eliquis. Advised to hold dose tomorrow morning. Will get CBC today and follow-up pending results. Discussed signs and symptoms to monitor for and ED precautions. Refer to GI. She has not yet been scheduled and has ongoing issues with uncontrolled reflux, epigastric pain and now blood in stool. #Breast cancer screening. Due for mammogram will refer. Comprehensive discussion was done on the following. 1. Nutrition: It is important to follow a healthy diet based on lots of vegetables and legumes and good fat. Avoid processed food and processed carbohydrates. Learn to prepare your own meals. Learn to read labels and avoid high fructose corn syrup, processed chemicals added to increase shelf life and preprepared meals. Avoid fast foods. Learn to eat slowly and plan meals for a week. Try to count calories and be mindful off daily calorie intake. Get into the habit of keeping an eye on your weight by using an appropriate scale. Learn to log exercise and discussed fitness Apps like [employer]ync which can help keep log off calories taken versus calories burned. Local food should be preferred. Discussed Dirty Dozen Versus Clean Fifteen. Discussed healthy supplements like fish oil, Tumeric, Curcumin, Melatonin, Resveratrol, Probiotics, Vitamin-D, Alpha-Lipoic acid, Vitamin-D and coconut oil. 2. It is important to exercise regularly. Is a good habit to walk at least 30-45 minutes a day. Gentle weightlifting with standard precautions to protect the back. Finding activity like cycling or hiking and get into the habit of engaging in it. Stretching before and after the exercises important. It is also important to contact me if there are any problems like shortness of breath, chest pain, back pain and joint or muscle pain associated with the exercise. 3. Discussed age appropriate screening guidelines. Colonoscopy needs to start at age 50 with stool for occult blood as appropriate. There is a new test that can test for genetic abnormalities in the stool sample. This would not replace a colonoscopy but could be used as a screening tool for patients who do not want a colonoscopy. We discussed the importance of early detection of colon cancer. 4. Discussed current guidelines with respect to breast examination, mammogram and pap smear for early detection of breast and cervical cancer. Patient advised to follow up with these appointments. 5. Discussed safe driving and no use of smart phone while driving 6. Age-appropriate immunizations were discussed. A tetanus booster is needed every 10 years. Flu vaccine is recommended every year just before the start of the flu season. Shingles vaccine is recommended after age 50 but not all insurances cover it.Pneumonia vaccine is given after age 65 unless there are certain comorbidities for which it is started earlier. 7. Diagnostic labs were discussed. These could include CBC CMP and lipids with fasting blood glucose and insulin levels. Vitamin D and hemoglobin A1c testing might be appropriate. Case discussed with collaborating physician Nahun Hilton who reviewed the assessment and plan. Chart, medications, labs, vital signs reviewed. Dictation was accomplished with the use of [employer] voice recognition software, prone to medical misidentifications and grammatical errors. This is unintentional and the practitioner does try to identify and correct these, but some could still be present. Please do not hesitate to contact practitioner for clarification. All questions answered to patients satisfaction. Patient verbalized understanding of diagnosis and treatments explained. To call sooner prior to next visit it any questions/concerns arise. 05/03/2024 Black stool (ICD-10 - K92.1) #Annual physical. Advised to schedule dental exam. Due for tetanus vaccine advised to get at pharmacy. Discussed healthy diet exercise as tolerated. Healthcare proxy given to patient will bring back to follow-up visit. #Black stool and bright red blood per rectum. Episode in the last couple of days. She is currently anticoagulated on Eliquis. Advised to hold dose tomorrow morning. Will get CBC today and follow-up pending results. Discussed signs and symptoms to monitor for and ED precautions. Refer to GI. She has not yet been scheduled and has ongoing issues with uncontrolled reflux, epigastric pain and now blood in stool. #Breast cancer screening. Due for mammogram will refer. Comprehensive discussion was done on the following. 1. Nutrition: It is important to follow a healthy diet based on lots of vegetables and legumes and good fat. Avoid processed food and processed carbohydrates. Learn to prepare your own meals. Learn to read labels and avoid high fructose corn syrup, processed chemicals added to increase shelf life and preprepared meals. Avoid fast foods. Learn to eat slowly and plan meals for a week. Try to count calories and be mindful off daily calorie intake. Get into the habit of keeping an eye on your weight by using an appropriate scale. Learn to log exercise and discussed fitness Apps like [employer]ync which can help keep log off calories taken versus calories burned. Local food should be preferred. Discussed Dirty Dozen Versus Clean Fifteen. Discussed healthy supplements like fish oil, Tumeric, Curcumin, Melatonin, Resveratrol, Probiotics, Vitamin-D, Alpha-Lipoic acid, Vitamin-D and coconut oil. 2. It is important to exercise regularly. Is a good habit to walk at least 30-45 minutes a day. Gentle weightlifting with standard precautions to protect the back. Finding activity like cycling or hiking and get into the habit of engaging in it. Stretching before and after the exercises important. It is also important to contact me if there are any problems like shortness of breath, chest pain, back pain and joint or muscle pain associated with the exercise. 3. Discussed age appropriate screening guidelines. Colonoscopy needs to start at age 50 with stool for occult blood as appropriate. There is a new test that can test for genetic abnormalities in the stool sample. This would not replace a colonoscopy but could be used as a screening tool for patients who do not want a colonoscopy. We discussed the importance of early detection of colon cancer. 4. Discussed current guidelines with respect to breast examination, mammogram and pap smear for early detection of breast and cervical cancer. Patient advised to follow up with these appointments. 5. Discussed safe driving and no use of smart phone while driving 6. Age-appropriate immunizations were discussed. A tetanus booster is needed every 10 years. Flu vaccine is recommended every year just before the start of the flu season. Shingles vaccine is recommended after age 50 but not all insurances cover it.Pneumonia vaccine is given after age 65 unless there are certain comorbidities for which it is started earlier. 7. Diagnostic labs were discussed. These could include CBC CMP and lipids with fasting blood glucose and insulin levels. Vitamin D and hemoglobin A1c testing might be appropriate. Case discussed with collaborating physician Nahun Hilton who reviewed the assessment and plan. Chart, medications, labs, vital signs reviewed. Dictation was accomplished with the use of [employer] voice recognition software, prone to medical misidentifications and grammatical errors. This is unintentional and the practitioner does try to identify and correct these, but some could still be present. Please do not hesitate to contact practitioner for clarification. All questions answered to patients satisfaction. Patient verbalized understanding of diagnosis and treatments explained. To call sooner prior to next visit it any questions/concerns arise. 06/02/2024 Anemia due to vitamin B12 deficiency, unspecified B12 deficiency type (ICD-10 - D51.9) 06/02/2024 Vitamin D deficiency, unspecified (ICD-10 - E55.9) 07/05/2024 Hypothyroidism, unspecified (ICD-10 - E03.9) #Hypothyroidism. TSH was just out of normal range previously we will recheck today. Follow-up pending results. #Folliculitis. Rash to bilateral upper arms. Question of folliculitis. Will start mupirocin twice daily x 5 days follow-up if no improvement in 1 to 2 weeks sooner with any changes. #Lump on face. Nodular growth to center of forehead which she reports has been increasing in size over the last few years. She would like to have this removed. Unclear if cyst. Will refer to dermatology for consideration of excision. #A-fib. Anticoagulated on Eliquis. Rate controlled on beta-trice. Denies any blood in stool or black stools. #Abdominal discomfort. Ongoing issue x months. She has seen GI and had colonoscopy 2 weeks ago. We were unable to get a copy of the records at time of her visit. Advised her to call GI today to get results and follow-up. Case discussed with collaborating physician Nahun Hilton who reviewed the assessment and plan. Chart, medications, labs, vital signs reviewed. Dictation was accomplished with the use of [employer] voice recognition software, prone to medical misidentifications and grammatical errors. This is unintentional and the practitioner does try to identify and correct these, but some could still be present. Please do not hesitate to contact practitioner for clarification. All questions answered to patients satisfaction. Patient verbalized understanding of diagnosis and treatments explained. To call sooner prior to next visit it any questions/concerns arise. 05/30/2024 Anemia due to vitamin B12 deficiency, unspecified B12 deficiency type (ICD-10 - D51.9) 07/05/2024 Folliculitis (ICD-10 - L73.9) #Hypothyroidism. TSH was just out of normal range previously we will recheck today. Follow-up pending results. #Folliculitis. Rash to bilateral upper arms. Question of folliculitis. Will start mupirocin twice daily x 5 days follow-up if no improvement in 1 to 2 weeks sooner with any changes. #Lump on face. Nodular growth to center of forehead which she reports has been increasing in size over the last few years. She would like to have this removed. Unclear if cyst. Will refer to dermatology for consideration of excision. #A-fib. Anticoagulated on Eliquis. Rate controlled on beta-trice. Denies any blood in stool or black stools. #Abdominal discomfort. Ongoing issue x months. She has seen GI and had colonoscopy 2 weeks ago. We were unable to get a copy of the records at time of her visit. Advised her to call GI today to get results and follow-up. Case discussed with collaborating physician Nahun Hilton who reviewed the assessment and plan. Chart, medications, labs, vital signs reviewed. Dictation was accomplished with the use of [employer] voice recognition software, prone to medical misidentifications and grammatical errors. This is unintentional and the practitioner does try to identify and correct these, but some could still be present. Please do not hesitate to contact practitioner for clarification. All questions answered to patients satisfaction. Patient verbalized understanding of diagnosis and treatments explained. To call sooner prior to next visit it any questions/concerns arise. 07/05/2024 Hypothyroidism, unspecified (ICD-10 - E03.9) 08/28/2024 Mild intermittent asthma with acute exacerbation (ICD-10 - J45.21) Complete prednisone course for an additional 2 days Tessalon as needed Chest x-ray reviewed Will start the patient on Trelegy for better asthma control Prescription provided for nebulizer machine to use at home as needed which hopefully should be minimal once Trelegy starts working Of note, some information is being carried forward from prior records for informational purposes only and is being cited so that efficiency, safety and quality of the patient's care is not compromised This note was prepared using voice recognition software and direct typing Please excuse inadvertent building wrecker or typing errors, or uncorrected word substitutions Although every attempt has been made by the provider to proofread this document, occasional misspellings and typographical errors may still be present Due to the previous pandemic, and the use of personal protective equipment (PPE) This may decrease voice recognition accuracy Inadvertent building wrecker errors may occur 09/22/2024 Vitamin D deficiency, unspecified (ICD-10 - E55.9) 09/26/2024 Anemia due to vitamin B12 deficiency, unspecified B12 deficiency type (ICD-10 - D51.9) 09/29/2024 Vitamin D deficiency, unspecified (ICD-10 - E55.9) 11/30/2024 Adult general medical exam (ICD-10 - Z00.00) 01/03/2025 Bacterial conjunctivitis (ICD-10 - H10.9) Saba is a 69-year-old female with extensive past medical history that presents for evaluation of left eye pain x 3 days. Treated as allergic conjunctivitis with azelastine drops without symptom improvement. On exam there appears to be a hordeolum of the left upper eyelid with surrounding erythema. There is also conjunctival injection of the left eye with minimal crusting visualized at the lacrimal gland. Will treat as bacterial conjunctivitis. Rx for erythromycin ophthalmologic ointment sent to pharmacy. Reviewed proper use. Patient rubs the eye throughout encounter -discussed the importance of hand hygiene and avoidance of contaminating the right eye. Recommending use of clean warm compresses as often as possible with goal of decreasing swelling, cleaning pillowcases, etc. Patient states she cannot work due to the presence - discussed that simple conjunctivitis does not require prolonged absence from work. Patient may return to work once treatment has been started. Patient also requesting refills of various vitamins/medications . States she has all of her maintenance medications available to take daily. Given she has not been seen for a prolonged period of time for routine follow-up she understands that a follow-up appointment is necessary prior to dispensing medication refills. All questions answered to the patient's satisfaction. Patient demonstrates understanding of diagnosis and treatments discussed. Follow-up at next scheduled appointment, sooner should symptoms not improve despite treatment or should any questions/concerns arise. Case discussed with collaborating physician Ning Hilton who has reviewed the assessment/plan. Chart, medications, labs, and vital signs reviewed. Dictation completed with the use of [employer] voice recognition software, prone to medical misidentifications and grammatical errors. All errors are unintentional. Although the practitioner does try to identify and correct errors, some may be present. Please do not hesitate to contact the practitioner for clarification. 01/03/2025 Hordeolum externum of left upper eyelid (ICD-10 - H00.014) Saba is a 69-year-old female with extensive past medical history that presents for evaluation of left eye pain x 3 days. Treated as allergic conjunctivitis with azelastine drops without symptom improvement. On exam there appears to be a hordeolum of the left upper eyelid with surrounding erythema. There is also conjunctival injection of the left eye with minimal crusting visualized at the lacrimal gland. Will treat as bacterial conjunctivitis. Rx for erythromycin ophthalmologic ointment sent to pharmacy. Reviewed proper use. Patient rubs the eye throughout encounter -discussed the importance of hand hygiene and avoidance of contaminating the right eye. Recommending use of clean warm compresses as often as possible with goal of decreasing swelling, cleaning pillowcases, etc. Patient states she cannot work due to the presence - discussed that simple conjunctivitis does not require prolonged absence from work. Patient may return to work once treatment has been started. Patient also requesting refills of various vitamins/medications . States she has all of her maintenance medications available to take daily. Given she has not been seen for a prolonged period of time for routine follow-up she understands that a follow-up appointment is necessary prior to dispensing medication refills. All questions answered to the patient's satisfaction. Patient demonstrates understanding of diagnosis and treatments discussed. Follow-up at next scheduled appointment, sooner should symptoms not improve despite treatment or should any questions/concerns arise. Case discussed with collaborating physician Ning Hilton who has reviewed the assessment/plan. Chart, medications, labs, and vital signs reviewed. Dictation completed with the use of [employer] voice recognition software, prone to medical misidentifications and grammatical errors. All errors are unintentional. Although the practitioner does try to identify and correct errors, some may be present. Please do not hesitate to contact the practitioner for clarification. 07/05/2024 Lump on face (ICD-10 - R22.0) #Hypothyroidism. TSH was just out of normal range previously we will recheck today. Follow-up pending results. #Folliculitis. Rash to bilateral upper arms. Question of folliculitis. Will start mupirocin twice daily x 5 days follow-up if no improvement in 1 to 2 weeks sooner with any changes. #Lump on face. Nodular growth to center of forehead which she reports has been increasing in size over the last few years. She would like to have this removed. Unclear if cyst. Will refer to dermatology for consideration of excision. #A-fib. Anticoagulated on Eliquis. Rate controlled on beta-trice. Denies any blood in stool or black stools. #Abdominal discomfort. Ongoing issue x months. She has seen GI and had colonoscopy 2 weeks ago. We were unable to get a copy of the records at time of her visit. Advised her to call GI today to get results and follow-up. Case discussed with collaborating physician Nahun Hilton who reviewed the assessment and plan. Chart, medications, labs, vital signs reviewed. Dictation was accomplished with the use of [employer] voice recognition software, prone to medical misidentifications and grammatical errors. This is unintentional and the practitioner does try to identify and correct these, but some could still be present. Please do not hesitate to contact practitioner for clarification. All questions answered to patients satisfaction. Patient verbalized understanding of diagnosis and treatments explained. To call sooner prior to next visit it any questions/concerns arise. 11/30/2024 Encounter for screening for lipoid disorders (ICD-10 - Z13.220) 06/02/2024 Vitamin D deficiency, unspecified (ICD-10 - E55.9) 05/03/2024 BRBPR (bright red blood per rectum) (ICD-10 - K62.5) #Annual physical. Advised to schedule dental exam. Due for tetanus vaccine advised to get at pharmacy. Discussed healthy diet exercise as tolerated. Healthcare proxy given to patient will bring back to follow-up visit. #Black stool and bright red blood per rectum. Episode in the last couple of days. She is currently anticoagulated on Eliquis. Advised to hold dose tomorrow morning. Will get CBC today and follow-up pending results. Discussed signs and symptoms to monitor for and ED precautions. Refer to GI. She has not yet been scheduled and has ongoing issues with uncontrolled reflux, epigastric pain and now blood in stool. #Breast cancer screening. Due for mammogram will refer. Comprehensive discussion was done on the following. 1. Nutrition: It is important to follow a healthy diet based on lots of vegetables and legumes and good fat. Avoid processed food and processed carbohydrates. Learn to prepare your own meals. Learn to read labels and avoid high fructose corn syrup, processed chemicals added to increase shelf life and preprepared meals. Avoid fast foods. Learn to eat slowly and plan meals for a week. Try to count calories and be mindful off daily calorie intake. Get into the habit of keeping an eye on your weight by using an appropriate scale. Learn to log exercise and discussed fitness Apps like [employer]ync which can help keep log off calories taken versus calories burned. Local food should be preferred. Discussed Dirty Dozen Versus Clean Fifteen. Discussed healthy supplements like fish oil, Tumeric, Curcumin, Melatonin, Resveratrol, Probiotics, Vitamin-D, Alpha-Lipoic acid, Vitamin-D and coconut oil. 2. It is important to exercise regularly. Is a good habit to walk at least 30-45 minutes a day. Gentle weightlifting with standard precautions to protect the back. Finding activity like cycling or hiking and get into the habit of engaging in it. Stretching before and after the exercises important. It is also important to contact me if there are any problems like shortness of breath, chest pain, back pain and joint or muscle pain associated with the exercise. 3. Discussed age appropriate screening guidelines. Colonoscopy needs to start at age 50 with stool for occult blood as appropriate. There is a new test that can test for genetic abnormalities in the stool sample. This would not replace a colonoscopy but could be used as a screening tool for patients who do not want a colonoscopy. We discussed the importance of early detection of colon cancer. 4. Discussed current guidelines with respect to breast examination, mammogram and pap smear for early detection of breast and cervical cancer. Patient advised to follow up with these appointments. 5. Discussed safe driving and no use of smart phone while driving 6. Age-appropriate immunizations were discussed. A tetanus booster is needed every 10 years. Flu vaccine is recommended every year just before the start of the flu season. Shingles vaccine is recommended after age 50 but not all insurances cover it.Pneumonia vaccine is given after age 65 unless there are certain comorbidities for which it is started earlier. 7. Diagnostic labs were discussed. These could include CBC CMP and lipids with fasting blood glucose and insulin levels. Vitamin D and hemoglobin A1c testing might be appropriate. Case discussed with collaborating physician Nahun Hilton who reviewed the assessment and plan. Chart, medications, labs, vital signs reviewed. Dictation was accomplished with the use of [employer] voice recognition software, prone to medical misidentifications and grammatical errors. This is unintentional and the practitioner does try to identify and correct these, but some could still be present. Please do not hesitate to contact practitioner for clarification. All questions answered to patients satisfaction. Patient verbalized understanding of diagnosis and treatments explained. To call sooner prior to next visit it any questions/concerns arise. 05/30/2024 Vitamin D deficiency, unspecified (ICD-10 - E55.9) 04/14/2024 Iron deficiency anemia, unspecified (ICD-10 - D50.9) 04/12/2024 Dizziness (ICD-10 - R42) #Right upper quadrant pain and epigastric pain. Moderate tenderness on exam. Will get ultrasound to further evaluate. CBC and CMP done this past week in the ED were normal. She does have a history of reflux and is currently on pantoprazole and sucralfate. Has also been referred to GI and is awaiting appointment. #Dizziness-ED visit secondary to fall. Discussed importance of eating consistently and regular hydration. Discussed potential impacts from her medications and sudden drop in blood pressure if she is dehydrated or changes positions quickly. No recurrent symptoms since ED visit. #Iron deficiency anemia. CBC normal in the ED last week. Will get updated iron studies and follow-up pending results #Vitamin D deficiency. Has been on supplement. Will recheck levels and refill medication. #Hyperlipidemia. Will get updated labs prior to wellness visit next month. #GERD. Worsening symptoms despite pantoprazole and sucralfate. Discussed importance of cutting back on coffee intake. Discussed limiting citrus and acidic foods in diet avoid laying down within 2 hours of eating. Will likely need endoscopy. She has been referred to GI awaiting appointment. Ultrasound as above. #Vitamin B12 deficiency. Recheck labs. MCV 100 on recent labs. Currently on supplement. No history of alcohol use. Will refill prescription follow-up pending results Case discussed with collaborating physician Nahun Hilton who reviewed the assessment and plan. Chart, medications, labs, vital signs reviewed. Dictation was accomplished with the use of [employer] voice recognition software, prone to medical misidentifications and grammatical errors. This is unintentional and the practitioner does try to identify and correct these, but some could still be present. Please do not hesitate to contact practitioner for clarification. All questions answered to patients satisfaction. Patient verbalized understanding of diagnosis and treatments explained. To call sooner prior to next visit it any questions/concerns arise. 03/14/2024 Acute pain of right shoulder (ICD-10 - M25.511) Patient with reinier st pain with severe reflux with alarm features. Patient has been referred for endoscopy. She is already maximized for treatment. I advised her to cut back on refined carbohydrates. I ordered blood work. I also referred to orthopedic surgery for ongoing right-sided shoulder pain with rotator cuff tendinitis and restricted range of motion of the shoulder on the right side. Diclofenac gel was prescribed as well. Will follow-up 02/08/2024 Abdominal pain, unspecified abdominal location (ICD-10 - R10.9) Discussed with patient regarding her abdominal pain as she is visibily distressed regarding this. We followed up regarding her ER visit and confirmed per patient no imaging such as CT AP or ultrasound was completed. We also discussed patient's prior colonoscopy results which were normal and endoscopy results which showed hiatal hernia. A possible consideration could the hiatal hernia progressing, ulcers, or something else. At this time her abdomen pain is of unclear etiology and we informed patient we would like to proceed with a CT scan to further evaluate the cause as we do not know for sure what could be causing her pain.. We will also be getting a consult from Dr. Mackey (General surgery) to discuss his opinion on if patient's hiatal hernia should be managed surgically or if medical management is the preferred course of treatment at this time. In the meantime we will be prescribing patient Famotidine which should help with her GERD-related sx as well. Patient states she has been struggling with food so advised she can try yogurt, broth, sweet potatoes, spinach, arugula, apples, berries, boiled eggs as these should hopefully not exacerbate her sx. F/u in 6 weeks. Patient aware and agreeable to assessment and plan. Patient given opportunity to ask any questions. All questions answered to patient's satisfaction. 02/08/2024 Epigastric pain (ICD-10 - R10.13) Discussed with patient regarding her abdominal pain as she is visibily distressed regarding this. We followed up regarding her ER visit and confirmed per patient no imaging such as CT AP or ultrasound was completed. We also discussed patient's prior colonoscopy results which were normal and endoscopy results which showed hiatal hernia. A possible consideration could the hiatal hernia progressing, ulcers, or something else. At this time her abdomen pain is of unclear etiology and we informed patient we would like to proceed with a CT scan to further evaluate the cause as we do not know for sure what could be causing her pain.. We will also be getting a consult from Dr. Mackey (General surgery) to discuss his opinion on if patient's hiatal hernia should be managed surgically or if medical management is the preferred course of treatment at this time. In the meantime we will be prescribing patient Famotidine which should help with her GERD-related sx as well. Patient states she has been struggling with food so advised she can try yogurt, broth, sweet potatoes, spinach, arugula, apples, berries, boiled eggs as these should hopefully not exacerbate her sx. F/u in 6 weeks. Patient aware and agreeable to assessment and plan. Patient given opportunity to ask any questions. All questions answered to patient's satisfaction. 03/14/2024 Hiatal hernia (ICD-10 - K44.9) Patient with ch est pain with severe reflux with alarm features. Patient has been referred for endoscopy. She is already maximized for treatment. I advised her to cut back on refined carbohydrates. I ordered blood work. I also referred to orthopedic surgery for ongoing right-sided shoulder pain with rotator cuff tendinitis and restricted range of motion of the shoulder on the right side. Diclofenac gel was prescribed as well. Will follow-up 04/12/2024 Iron deficiency anemia, unspecified (ICD-10 - D50.9) #Right upper quadrant pain and epigastric pain. Moderate tenderness on exam. Will get ultrasound to further evaluate. CBC and CMP done this past week in the ED were normal. She does have a history of reflux and is currently on pantoprazole and sucralfate. Has also been referred to GI and is awaiting appointment. #Dizziness-ED visit secondary to fall. Discussed importance of eating consistently and regular hydration. Discussed potential impacts from her medications and sudden drop in blood pressure if she is dehydrated or changes positions quickly. No recurrent symptoms since ED visit. #Iron deficiency anemia. CBC normal in the ED last week. Will get updated iron studies and follow-up pending results #Vitamin D deficiency. Has been on supplement. Will recheck levels and refill medication. #Hyperlipidemia. Will get updated labs prior to wellness visit next month. #GERD. Worsening symptoms despite pantoprazole and sucralfate. Discussed importance of cutting back on coffee intake. Discussed limiting citrus and acidic foods in diet avoid laying down within 2 hours of eating. Will likely need endoscopy. She has been referred to GI awaiting appointment. Ultrasound as above. #Vitamin B12 deficiency. Recheck labs. MCV 100 on recent labs. Currently on supplement. No history of alcohol use. Will refill prescription follow-up pending results Case discussed with collaborating physician Nahun Hilton who reviewed the assessment and plan. Chart, medications, labs, vital signs reviewed. Dictation was accomplished with the use of [employer] voice recognition software, prone to medical misidentifications and grammatical errors. This is unintentional and the practitioner does try to identify and correct these, but some could still be present. Please do not hesitate to contact practitioner for clarification. All questions answered to patients satisfaction. Patient verbalized understanding of diagnosis and treatments explained. To call sooner prior to next visit it any questions/concerns arise. 04/14/2024 Hypothyroidism, unspecified (ICD-10 - E03.9) 05/03/2024 Encounter for screening mammogram for malignant neoplasm of breast (ICD-10 - Z12.31) #Annual physical. Advised to schedule dental exam. Due for tetanus vaccine advised to get at pharmacy. Discussed healthy diet exercise as tolerated. Healthcare proxy given to patient will bring back to follow-up visit. #Black stool and bright red blood per rectum. Episode in the last couple of days. She is currently anticoagulated on Eliquis. Advised to hold dose tomorrow morning. Will get CBC today and follow-up pending results. Discussed signs and symptoms to monitor for and ED precautions. Refer to GI. She has not yet been scheduled and has ongoing issues with uncontrolled reflux, epigastric pain and now blood in stool. #Breast cancer screening. Due for mammogram will refer. Comprehensive discussion was done on the following. 1. Nutrition: It is important to follow a healthy diet based on lots of vegetables and legumes and good fat. Avoid processed food and processed carbohydrates. Learn to prepare your own meals. Learn to read labels and avoid high fructose corn syrup, processed chemicals added to increase shelf life and preprepared meals. Avoid fast foods. Learn to eat slowly and plan meals for a week. Try to count calories and be mindful off daily calorie intake. Get into the habit of keeping an eye on your weight by using an appropriate scale. Learn to log exercise and discussed fitness Apps like [employer] which can help keep log off calories taken versus calories burned. Local food should be preferred. Discussed Dirty Dozen Versus Clean Fifteen. Discussed healthy supplements like fish oil, Tumeric, Curcumin, Melatonin, Resveratrol, Probiotics, Vitamin-D, Alpha-Lipoic acid, Vitamin-D and coconut oil. 2. It is important to exercise regularly. Is a good habit to walk at least 30-45 minutes a day. Gentle weightlifting with standard precautions to protect the back. Finding activity like cycling or hiking and get into the habit of engaging in it. Stretching before and after the exercises important. It is also important to contact me if there are any problems like shortness of breath, chest pain, back pain and joint or muscle pain associated with the exercise. 3. Discussed age appropriate screening guidelines. Colonoscopy needs to start at age 50 with stool for occult blood as appropriate. There is a new test that can test for genetic abnormalities in the stool sample. This would not replace a colonoscopy but could be used as a screening tool for patients who do not want a colonoscopy. We discussed the importance of early detection of colon cancer. 4. Discussed current guidelines with respect to breast examination, mammogram and pap smear for early detection of breast and cervical cancer. Patient advised to follow up with these appointments. 5. Discussed safe driving and no use of smart phone while driving 6. Age-appropriate immunizations were discussed. A tetanus booster is needed every 10 years. Flu vaccine is recommended every year just before the start of the flu season. Shingles vaccine is recommended after age 50 but not all insurances cover it.Pneumonia vaccine is given after age 65 unless there are certain comorbidities for which it is started earlier. 7. Diagnostic labs were discussed. These could include CBC CMP and lipids with fasting blood glucose and insulin levels. Vitamin D and hemoglobin A1c testing might be appropriate. Case discussed with collaborating physician Nahun Hilton who reviewed the assessment and plan. Chart, medications, labs, vital signs reviewed. Dictation was accomplished with the use of [employer] voice recognition software, prone to medical misidentifications and grammatical errors. This is unintentional and the practitioner does try to identify and correct these, but some could still be present. Please do not hesitate to contact practitioner for clarification. All questions answered to patients satisfaction. Patient verbalized understanding of diagnosis and treatments explained. To call sooner prior to next visit it any questions/concerns arise. 07/05/2024 Atrial fibrillation with RVR (ICD-10 - I48.91) #Hypothyroidism. TSH was just out of normal range previously we will recheck today. Follow-up pending results. #Folliculitis. Rash to bilateral upper arms. Question of folliculitis. Will start mupirocin twice daily x 5 days follow-up if no improvement in 1 to 2 weeks sooner with any changes. #Lump on face. Nodular growth to center of forehead which she reports has been increasing in size over the last few years. She would like to have this removed. Unclear if cyst. Will refer to dermatology for consideration of excision. #A-fib. Anticoagulated on Eliquis. Rate controlled on beta-trice. Denies any blood in stool or black stools. #Abdominal discomfort. Ongoing issue x months. She has seen GI and had colonoscopy 2 weeks ago. We were unable to get a copy of the records at time of her visit. Advised her to call GI today to get results and follow-up. Case discussed with collaborating physician Nahun Hilton who reviewed the assessment and plan. Chart, medications, labs, vital signs reviewed. Dictation was accomplished with the use of [employer] voice recognition software, prone to medical misidentifications and grammatical errors. This is unintentional and the practitioner does try to identify and correct these, but some could still be present. Please do not hesitate to contact practitioner for clarification. All questions answered to patients satisfaction. Patient verbalized understanding of diagnosis and treatments explained. To call sooner prior to next visit it any questions/concerns arise. 11/30/2024 Diabetes mellitus screening (ICD-10 - Z13.1) 04/12/2024 Hyperlipidemia, unspecified (ICD-10 - E78.5) #Right upper quadrant pain and epigastric pain. Moderate tenderness on exam. Will get ultrasound to further evaluate. CBC and CMP done this past week in the ED were normal. She does have a history of reflux and is currently on pantoprazole and sucralfate. Has also been referred to GI and is awaiting appointment. #Dizziness-ED visit secondary to fall. Discussed importance of eating consistently and regular hydration. Discussed potential impacts from her medications and sudden drop in blood pressure if she is dehydrated or changes positions quickly. No recurrent symptoms since ED visit. #Iron deficiency anemia. CBC normal in the ED last week. Will get updated iron studies and follow-up pending results #Vitamin D deficiency. Has been on supplement. Will recheck levels and refill medication. #Hyperlipidemia. Will get updated labs prior to wellness visit next month. #GERD. Worsening symptoms despite pantoprazole and sucralfate. Discussed importance of cutting back on coffee intake. Discussed limiting citrus and acidic foods in diet avoid laying down within 2 hours of eating. Will likely need endoscopy. She has been referred to GI awaiting appointment. Ultrasound as above. #Vitamin B12 deficiency. Recheck labs. MCV 100 on recent labs. Currently on supplement. No history of alcohol use. Will refill prescription follow-up pending results Case discussed with collaborating physician Nahun Hilton who reviewed the assessment and plan. Chart, medications, labs, vital signs reviewed. Dictation was accomplished with the use of [employer] voice recognition software, prone to medical misidentifications and grammatical errors. This is unintentional and the practitioner does try to identify and correct these, but some could still be present. Please do not hesitate to contact practitioner for clarification. All questions answered to patients satisfaction. Patient verbalized understanding of diagnosis and treatments explained. To call sooner prior to next visit it any questions/concerns arise. 11/30/2024 Encounter for screening for endocrine disorder (ICD-10 - Z13.29) 07/05/2024 Abdominal discomfort (ICD-10 - R10.9) #Hypothyroidism. TSH was just out of normal range previously we will recheck today. Follow-up pending results. #Folliculitis. Rash to bilateral upper arms. Question of folliculitis. Will start mupirocin twice daily x 5 days follow-up if no improvement in 1 to 2 weeks sooner with any changes. #Lump on face. Nodular growth to center of forehead which she reports has been increasing in size over the last few years. She would like to have this removed. Unclear if cyst. Will refer to dermatology for consideration of excision. #A-fib. Anticoagulated on Eliquis. Rate controlled on beta-trice. Denies any blood in stool or black stools. #Abdominal discomfort. Ongoing issue x months. She has seen GI and had colonoscopy 2 weeks ago. We were unable to get a copy of the records at time of her visit. Advised her to call GI today to get results and follow-up. Case discussed with collaborating physician Nahun Hilton who reviewed the assessment and plan. Chart, medications, labs, vital signs reviewed. Dictation was accomplished with the use of [employer] voice recognition software, prone to medical misidentifications and grammatical errors. This is unintentional and the practitioner does try to identify and correct these, but some could still be present. Please do not hesitate to contact practitioner for clarification. All questions answered to patients satisfaction. Patient verbalized understanding of diagnosis and treatments explained. To call sooner prior to next visit it any questions/concerns arise. 02/08/2024 RUQ abdominal pain (ICD-10 - R10.11) Discussed with patient regarding her abdominal pain as she is visibily distressed regarding this. We followed up regarding her ER visit and confirmed per patient no imaging such as CT AP or ultrasound was completed. We also discussed patient's prior colonoscopy results which were normal and endoscopy results which showed hiatal hernia. A possible consideration could the hiatal hernia progressing, ulcers, or something else. At this time her abdomen pain is of unclear etiology and we informed patient we would like to proceed with a CT scan to further evaluate the cause as we do not know for sure what could be causing her pain.. We will also be getting a consult from Dr. Mackey (General surgery) to discuss his opinion on if patient's hiatal hernia should be managed surgically or if medical management is the preferred course of treatment at this time. In the meantime we will be prescribing patient Famotidine which should help with her GERD-related sx as well. Patient states she has been struggling with food so advised she can try yogurt, broth, sweet potatoes, spinach, arugula, apples, berries, boiled eggs as these should hopefully not exacerbate her sx. F/u in 6 weeks. Patient aware and agreeable to assessment and plan. Patient given opportunity to ask any questions. All questions answered to patient's satisfaction. 04/12/2024 Hypothyroidism, unspecified (ICD-10 - E03.9) #Right upper quadrant pain and epigastric pain. Moderate tenderness on exam. Will get ultrasound to further evaluate. CBC and CMP done this past week in the ED were normal. She does have a history of reflux and is currently on pantoprazole and sucralfate. Has also been referred to GI and is awaiting appointment. #Dizziness-ED visit secondary to fall. Discussed importance of eating consistently and regular hydration. Discussed potential impacts from her medications and sudden drop in blood pressure if she is dehydrated or changes positions quickly. No recurrent symptoms since ED visit. #Iron deficiency anemia. CBC normal in the ED last week. Will get updated iron studies and follow-up pending results #Vitamin D deficiency. Has been on supplement. Will recheck levels and refill medication. #Hyperlipidemia. Will get updated labs prior to wellness visit next month. #GERD. Worsening symptoms despite pantoprazole and sucralfate. Discussed importance of cutting back on coffee intake. Discussed limiting citrus and acidic foods in diet avoid laying down within 2 hours of eating. Will likely need endoscopy. She has been referred to GI awaiting appointment. Ultrasound as above. #Vitamin B12 deficiency. Recheck labs. MCV 100 on recent labs. Currently on supplement. No history of alcohol use. Will refill prescription follow-up pending results Case discussed with collaborating physician Nahun Hilton who reviewed the assessment and plan. Chart, medications, labs, vital signs reviewed. Dictation was accomplished with the use of [employer] voice recognition software, prone to medical misidentifications and grammatical errors. This is unintentional and the practitioner does try to identify and correct these, but some could still be present. Please do not hesitate to contact practitioner for clarification. All questions answered to patients satisfaction. Patient verbalized understanding of diagnosis and treatments explained. To call sooner prior to next visit it any questions/concerns arise. 11/30/2024 Thyroid disorder screen (ICD-10 - Z13.29) 04/12/2024 Gastroesophageal reflux disease, unspecified whether esophagitis present (ICD-10 - K21.9) #Right upper quadrant pain and epigastric pain. Moderate tenderness on exam. Will get ultrasound to further evaluate. CBC and CMP done this past week in the ED were normal. She does have a history of reflux and is currently on pantoprazole and sucralfate. Has also been referred to GI and is awaiting appointment. #Dizziness-ED visit secondary to fall. Discussed importance of eating consistently and regular hydration. Discussed potential impacts from her medications and sudden drop in blood pressure if she is dehydrated or changes positions quickly. No recurrent symptoms since ED visit. #Iron deficiency anemia. CBC normal in the ED last week. Will get updated iron studies and follow-up pending results #Vitamin D deficiency. Has been on supplement. Will recheck levels and refill medication. #Hyperlipidemia. Will get updated labs prior to wellness visit next month. #GERD. Worsening symptoms despite pantoprazole and sucralfate. Discussed importance of cutting back on coffee intake. Discussed limiting citrus and acidic foods in diet avoid laying down within 2 hours of eating. Will likely need endoscopy. She has been referred to GI awaiting appointment. Ultrasound as above. #Vitamin B12 deficiency. Recheck labs. MCV 100 on recent labs. Currently on supplement. No history of alcohol use. Will refill prescription follow-up pending results Case discussed with collaborating physician Nahun Hilton who reviewed the assessment and plan. Chart, medications, labs, vital signs reviewed. Dictation was accomplished with the use of [employer] voice recognition software, prone to medical misidentifications and grammatical errors. This is unintentional and the practitioner does try to identify and correct these, but some could still be present. Please do not hesitate to contact practitioner for clarification. All questions answered to patients satisfaction. Patient verbalized understanding of diagnosis and treatments explained. To call sooner prior to next visit it any questions/concerns arise. 04/12/2024 Vitamin D deficiency, unspecified (ICD-10 - E55.9) #Right upper quadrant pain and epigastric pain. Moderate tenderness on exam. Will get ultrasound to further evaluate. CBC and CMP done this past week in the ED were normal. She does have a history of reflux and is currently on pantoprazole and sucralfate. Has also been referred to GI and is awaiting appointment. #Dizziness-ED visit secondary to fall. Discussed importance of eating consistently and regular hydration. Discussed potential impacts from her medications and sudden drop in blood pressure if she is dehydrated or changes positions quickly. No recurrent symptoms since ED visit. #Iron deficiency anemia. CBC normal in the ED last week. Will get updated iron studies and follow-up pending results #Vitamin D deficiency. Has been on supplement. Will recheck levels and refill medication. #Hyperlipidemia. Will get updated labs prior to wellness visit next month. #GERD. Worsening symptoms despite pantoprazole and sucralfate. Discussed importance of cutting back on coffee intake. Discussed limiting citrus and acidic foods in diet avoid laying down within 2 hours of eating. Will likely need endoscopy. She has been referred to GI awaiting appointment. Ultrasound as above. #Vitamin B12 deficiency. Recheck labs. MCV 100 on recent labs. Currently on supplement. No history of alcohol use. Will refill prescription follow-up pending results Case discussed with collaborating physician Nahun Hilton who reviewed the assessment and plan. Chart, medications, labs, vital signs reviewed. Dictation was accomplished with the use of [employer] voice recognition software, prone to medical misidentifications and grammatical errors. This is unintentional and the practitioner does try to identify and correct these, but some could still be present. Please do not hesitate to contact practitioner for clarification. All questions answered to patients satisfaction. Patient verbalized understanding of diagnosis and treatments explained. To call sooner prior to next visit it any questions/concerns arise. 04/12/2024 Anemia due to vitamin B12 deficiency, unspecified B12 deficiency type (ICD-10 - D51.9) #Right upper quadrant pain and epigastric pain. Moderate tenderness on exam. Will get ultrasound to further evaluate. CBC and CMP done this past week in the ED were normal. She does have a history of reflux and is currently on pantoprazole and sucralfate. Has also been referred to GI and is awaiting appointment. #Dizziness-ED visit secondary to fall. Discussed importance of eating consistently and regular hydration. Discussed potential impacts from her medications and sudden drop in blood pressure if she is dehydrated or changes positions quickly. No recurrent symptoms since ED visit. #Iron deficiency anemia. CBC normal in the ED last week. Will get updated iron studies and follow-up pending results #Vitamin D deficiency. Has been on supplement. Will recheck levels and refill medication. #Hyperlipidemia. Will get updated labs prior to wellness visit next month. #GERD. Worsening symptoms despite pantoprazole and sucralfate. Discussed importance of cutting back on coffee intake. Discussed limiting citrus and acidic foods in diet avoid laying down within 2 hours of eating. Will likely need endoscopy. She has been referred to GI awaiting appointment. Ultrasound as above. #Vitamin B12 deficiency. Recheck labs. MCV 100 on recent labs. Currently on supplement. No history of alcohol use. Will refill prescription follow-up pending results Case discussed with collaborating physician Nahun Hilton who reviewed the assessment and plan. Chart, medications, labs, vital signs reviewed. Dictation was accomplished with the use of [employer] voice recognition software, prone to medical misidentifications and grammatical errors. This is unintentional and the practitioner does try to identify and correct these, but some could still be present. Please do not hesitate to contact practitioner for clarification. All questions answered to patients satisfaction. Patient verbalized understanding of diagnosis and treatments explained. To call sooner prior to next visit it any questions/concerns arise. Plan Of Treatment Pending Test Test Name Order Date Ultrasound : Right Upper Quadrant 2022 Echocardiogram 12/16/2022 Echocardiogram 09/25/2022 Mammogram 12/16/2021 Mammogram 11/10/2018 Mammogram 12/19/2020 Mammogram, left breast 02/13/2021 Iron and TIBC 12/19/2020 TSH+Free T4 11/10/2018 Comp. Metabolic Panel (14) 11/10/2018 Basic Metabolic Panel (8) 12/19/2020 CBC 12/19/2020 CBC 11/10/2018 MAMMOGRAM, SCREENING 05/03/2024 Bone Density 12/16/2021 CT Abdomen and Pelvis 02/08/2024 EKG 06/03/2023 BASIC METABOLIC PANEL 11/11/2022 CBC (COMPLETE BLOOD COUNT) 05/17/2020 CBC (COMPLETE BLOOD COUNT) 06/14/2018 CBC (COMPLETE BLOOD COUNT) 03/03/2018 CBC (COMPLETE BLOOD COUNT) WITH DIFF CBC (COMPLETE BLOOD COUNT) WITH DIFF 08/2024 CBC (COMPLETE BLOOD COUNT) WITH DIFF COMPREHENSIVE METABOLIC PANEL 09/25/2022 COMPREHENSIVE METABOLIC PANEL 12/24/2023 COMPREHENSIVE METABOLIC PANEL 05/17/2020 COMPREHENSIVE METABOLIC PANEL 03/03/2018 FERRITIN 06/14/2018 HEMOGLOBIN A1C 10/06/2021 HEMOGLOBIN A1C 07/16/2022 HEMOGLOBIN A1C 03/03/2018 HEMOGLOBIN A1C 03/26/2022 HEMOGLOBIN A1C 04/12/2024 HEMOGLOBIN A1C 12/24/2023 IRON & TIBC 06/14/2018 LIPID PANEL 03/03/2018 LIPID PANEL 04/12/2024 LIPID PANEL 12/24/2023 LIPID PANEL 05/17/2020 T4, FREE 05/17/2020 T4, TOTAL 09/25/2022 TSH 09/25/2022 TSH 12/24/2023 TSH 04/14/2024 TSH 07/05/2024 TSH 05/17/2020 TSH 07/05/2024 TSH WITH REFLEX TO FT4 10/06/2021 URINALYSIS, COMPLETE 03/03/2018 Chest 2 Views Frontal and Lat 08/09/2023 US Abdomen Complete 04/12/2024 US Head/Neck Soft Tissue 12/22/2020 US Head/Neck Soft Tissue 12/19/2020 Xray: Knee Right (Standard, 4 Views) TOTAL T4 11/30/2024 LIPID PANEL, STANDARD 11/30/2024 LIPID PANEL, STANDARD 03/14/2024 LIPID PANEL, STANDARD 11/17/2023 LIPID PANEL, STANDARD 05/29/2021 THYROID PEROXIDASE AND THYROGLOBULIN ANT IBODIES 11/30/2024 MICROALBUMIN, RANDOM URINE (W/CREATININE ) 12/16/2021 IRON, TIBC AND FERRITIN PANEL 04/12/2024 COMPREHENSIVE METABOLIC PANEL 03/14/2024 COMPREHENSIVE METABOLIC PANEL 11/17/2023 COMPREHENSIVE METABOLIC PANEL 11/30/2024 COMPREHENSIVE METABOLIC PANEL 05/29/2021 CBC (H/H, RBC, INDICES, WBC, PLT) 2020 CBC (INCLUDES DIFF/PLT) 11/30/2024 CBC (INCLUDES DIFF/PLT) 11/17/2023 CBC (INCLUDES DIFF/PLT) 03/14/2024 URINALYSIS, COMPLETE 12/24/2023 URINALYSIS, COMPLETE 11/30/2024 HEMOGLOBIN A1c 11/30/2024 HEMOGLOBIN A1c 11/17/2023 HEMOGLOBIN A1c 12/16/2021 VITAMIN B12 04/12/2024 TSH 04/12/2024 TSH 03/14/2024 TSH 11/17/2023 TSH W/REFLEX TO FT4 11/30/2024 VITAMIN D,25-OH,TOTAL,IA 05/29/2021 VITAMIN D, 1,25 DIHYDROXY LC/MS/MS 12/23 VITAMIN D, 1,25 DIHYDROXY LC/MS/MS 04/12 FOLATE 12/19/2020 MR Brain WO 09/25/2022 Future Test Test Name Order Date 25OH VITAMIN D 12/09/2020 HEMOGLOBIN A1C 12/09/2020 LIPID PANEL 12/09/2020 TSH 12/09/2020 VITAMIN B12 12/09/2020 25OH VITAMIN D 02/11/2023 CBC (COMPLETE BLOOD COUNT) WITH DIFF 09/2022 COMPREHENSIVE METABOLIC PANEL 02/11/2023 HEMOGLOBIN A1C 02/11/2023 LIPID PANEL 02/11/2023 TSH WITH REFLEX TO FT4 02/11/2023 URINALYSIS W/REFLEX CULTURE 02/11/2023 Next Appt Details Provider Name:ARABELLA RICHNahun, 02/13/2025 11:15:00 AM, [address] [facility], [facility] [address], [place], [address], Insurance Providers Payer Name Payer Address Payer Phone Subscriber Number Group Number Insured Name Patient Relationship to Insured Coverage Start Date Coverage End Date [facility] Medicare Advantage [address] [place] [address] [phone] [id number] George Mars Self - patient is the insured [place] [address] [place] [phone] [id number] George Mars Self - patient is the insured Medical (General) History Surgical History Surgery Date(Month/Year) tubal ligation Colonoscopy diverticulosis 2013 EGD normal 2013 Capsule endoscopy normal 2013 Hospitalization History Reason Date(Month/Year) heart surgery 2022
--- OUTSIDE RECORDS SUMMARY | 2025-01-24 11:49 | XMS_ITS | Continuity of Care Document ---
Author Organization [facility] Address [address] [place] [address] [address] [place] [address] Phone Care Team Providers Care Washer Machine Name Role Phone Sam RAMIREZ, MELISSA, Riki HDZ Unavailable U navailable Allergies, Adverse Reactions, Alerts Substance Reaction Status Criticality No Known Allergies Active No Inform ation Procedures Procedure Date Varithena, Single Truncal Vein - CT & [place] Office/Outpt E&M Established 10 Mins- Te lemedicine CT & [place] Office/Oupt E&M New Pt 45 Mins- CT & [place] Surgical Stockings CVR Reveal Thigh High 20-30 Duplex Scan-extrem Veins; Comp- CT & [place] Advance Directives Directive Yes / No Effective Date File Name No Information Encounters Encounter Description Practice Location Reason(s) For Visit Diagnoses Date Provider Providers Copied on Encounter [facility], [address] [place] [address] [address], [place], [id number], [place] tel:[phone] CVR - [facility] Varicose veins of left lower extremity with other complications 4 Sam RAMIREZ, ANDRIENA TORRES. [address] [facility], [address], [place], [place], [id number] , [place]. tel:[phone] [facility], [address] [address] [place], [id number], [place] [phone] CVR - [place] No Information 4 Sam RAMIREZ RVT, ANDREINA Lyn. [address] [place] [address], [facility] [place] [id number] , [place]. [phone] Office/Outpt E&M Established 10 Mins- Telemedicine CT & [place] [facility], [address] [place] [address] [address] [place], [id number], [place] tel:[phone] CVR - [place] Restless legs syndromeChroni c venous hypertension (idiopathic) with other complications of bilateral lower extremityCramp and spasm 4 Sam RAMIREZ RVT, ANDREINA Lyn. [address] [place] [address], [facility], [place], [id number] , [place]. tel:[phone] Referring Provider: Ana Riverafrederic, [address] [place] [address], [id number]. tel:[phone] Office/Oupt E&M New Pt 45 Mins- CT & [place] [facility], [address] [place] [address] Dr [address] [place], [id number], [place] tel:[phone] CVR - [place] Varicose veins of bilateral lower extremities with other complicationsR estless legs syndromePain in left legCramp and spasmLocalized edema 4 Sam RAMIREZ RVT, ANDREINA Lyn. [address] [place] [address], [facility] [place], [id number] , [place]. tel:[phone] [facility], [address] [place] [address] [address] [place] Miguel [place], [id number], [place] tel:[phone] CVR - [place] Chronic venous hypertension (idiopathic) with other complications of bilateral lower extremity 4 Sam RAMIREZ RVT, ANDREINA Lyn. [address] [place] [address], [facility] [place], [id number] , [place]. tel:[phone] Referring Provider: Ana Newberry, [address] [place] [address], [id number]. tel:[phone] Family History Family Member Type Diagnosis Age At Onset No Information Payers Payer name Insurance type Covered green party ID Authorcolleen moy(s) BCBS ASMITA [id number] Medicare ASMITA PIOTR [id number] Medical Assistance ASMITA [id number] Social History Type Description Quantity Date Captured Comments Sex Female Smoking Status No Information Chief Complaint And Reason For Visit No Information Reason For Referral Reason For Referral No Information Plan Of Treatment Date Type Action Status Goal Diet education completed Referral Ordered: Weight management: Referral to physician timeframe: 3 Months (related to Body mass index (BMI) 33.0-33.9, adult) ordered History Of Present Illness Encounter Date Complaint History Of Prese nt Illness No Information Functional Status Date Functional Assessmen t No Information Instructions Date Instruction Additional Infor debbie Patient education booklet given Related to Chronic venous hypertension (idiopathic) with other complications of bilateral lower extremity Diet education Related to Body mass index (BMI) 33.0-33.9, adult Giving Encouragement to exercise Related to Body mass index (BMI) 33.0-33.9, adult Lifestyle education Related to B claudia mass index (BMI) 33.0-33.9, adult Patient education booklet given Related to Varicose veins of bilateral lower extremities with other complications Assessments Type Assessment Date No Information Patient Care Teams Name Effective Dates (start - stop) Status Members No Information
[2025-01-24 11:51] LABS: Appearance Urine Cloudy; Color Urine Yellow; Glucose Urine UA Negative (Negative); Leukocyte Esterase Urine Negative (Negative); Nitrite Urine Negative (Negative); PH 5.5 (5.0-9.0); Specific Gravity - Urine 1.025 (1.005-1.025); Urine Blood Negative (Negative); Urine Ketones Trace mg/dL (Negative); Urine Protein Negative (Neg-Trace)
[2025-01-24 12:49] VITALS: BP 119/68; PULSE 78; RESP 16; TEMP 36.5; O2SAT 97
[2025-01-24 12:50] VITALS: BP 119/68; PULSE 78; RESP 16; TEMP 36.5; O2SAT 97
== END 2025-01-24 12:57 | disposition home or self-care (01) ==
PROVIDERS: Physician Assistant; Emergency Provider Emergency Medicine
DX: R10.32 Left lower quadrant pain (principal); R10.2 Pelvic and perineal pain; R10.33 Periumbilical pain; Z79.899 Other long term (current) drug therapy
CPT/HCPCS: 36415; 74177; 80053; 81003; 82248; 83690; 83735; 85025; 96361; 96374; 99284; J1885

== ENCOUNTER → 2025-01-24 11:11 | Outpatient (BNV) | payer MEDICARE, SELFPAY | PROVIDERS: Emergency Provider Emergency Medicine; Visit Provider Radiology Diagnostic Radiology | DX: R10.32 Left lower quadrant pain (principal) | CPT/HCPCS: 74177 ==